=== PATIENT | male | born 1970 | race Caucasian/White ===

== ENCOUNTER 2018-02-14 08:28 | Outpatient (CLI) | payer BC, SELFPAY ==
[2018-02-14 11:09] LABS: Cholesterol 235 mg/dL (50-200); HDL Cholesterol 36 mg/dL (40-60); LDL CHOLESTEROL 169 mg/dL (<100); Triglyceride 196 mg/dL (30-150)
== END 2018-02-14 08:48 ==
LOC: LBO 08:29 → LOS 11:14
PROVIDERS: PCP Emergency Medicine; Visit Provider Emergency Medicine
DX: E78.5 Hyperlipidemia, unspecified (principal)
CPT/HCPCS: 36415; 80061; 83721

== ENCOUNTER 2018-03-13 09:29 | Outpatient (CLI) | payer BC, SELFPAY ==
--- NOTE | 2018-03-13 08:58 | DI.RAD_ITS ---
SYMPTOM/DIAGNOSIS: LT ACHILLES TEAR LEFT FOOT: Three views. No acute fracture or dislocation is seen. There is an enthesophyte at the insertion site of the Achilles onto the posterior calcaneus. There does appear to be some thickening of the Achilles tendon shadow which may represent tendinosis or tear. MRI of the ankle may be considered for further evaluation. No radiopaque foreign bodies are seen in the soft tissues. The joint spaces are well maintained.
== END 2018-03-13 09:49 ==
PROVIDERS: PCP Emergency Medicine; Visit Provider Physician Assistant
DX: M76.62 Achilles tendinitis, left leg (principal)
CPT/HCPCS: 73630

== ENCOUNTER 2018-03-30 00:48 | Outpatient (CLI) | payer OTHER, SELFPAY ==
--- NOTE | 2018-03-30 07:52 | DI.MRI_ITS ---
SYMPTOM/DIAGNOSIS: LT ACHILLES PAIN, M76.62, LT ACHILLES TENDINITIS LEFT ANKLE MRI: MRI examination of the ankle was performed according to the usual protocol. No significant bony signal abnormality is seen involving the bones of the ankle region. Bony alignment appears within normal limits. No gross ligamentous abnormality is seen. The requisition raises the possibility of Achilles tendinitis. The Achilles tendon is mildly thickened, measuring up to about 14 mm. in diameter but shows fairly normal intratendinous signal on PD T 2 fat sat and T 1 weighted imaging. Minimal fabrice insertional fluid is noted which is a very subtle finding. Minimal increased signal also noted just anterior to the Achilles tendon about 4 cm. above its insertion which may just be artifactual. No fluid collection is seen. No other significant fat edema identified. CONCLUSION: Findings suggesting minimal farbice insertional Achilles tendinitis. Achilles tendon is thickened but shows fairly normal signal consistent with reported previous surgical repair.
== END 2018-03-30 01:08 ==
PROVIDERS: PCP Emergency Medicine; Visit Provider Physician Assistant
DX: M76.62 Achilles tendinitis, left leg (principal); M25.572 Pain in left ankle and joints of left foot
CPT/HCPCS: 73721

== ENCOUNTER 2018-08-15 09:00 | Outpatient (CLI) | payer BC, SELFPAY ==
[2018-08-15 13:03] LABS: Cholesterol 244 mg/dL (50-200); HDL Cholesterol 36 mg/dL (40-60); LDL CHOLESTEROL 164 mg/dL (<100); Triglyceride 173 mg/dL (30-150)
== END 2018-08-15 09:20 ==
PROVIDERS: PCP Emergency Medicine; Visit Provider Emergency Medicine
DX: E78.00 Pure hypercholesterolemia, unspecified (principal)
CPT/HCPCS: 36415; 80061; 83721

== ENCOUNTER 2018-11-22 11:36 | Outpatient (CLI) | payer BC, SELFPAY ==
--- NOTE | 2018-11-22 11:21 | DI.RAD_ITS ---
SYMPTOMS/DIAGNOSIS: RT ACHILLES INJURY RIGHT HEEL: Lateral and Taylor projections are provided. No bony or joint abnormality is seen.
== END 2018-11-22 11:56 ==
PROVIDERS: PCP Emergency Medicine; Visit Provider Physician Assistant
DX: S86.011A Strain of right Achilles tendon, initial encounter (principal)
CPT/HCPCS: 73650

== ENCOUNTER 2018-11-22 11:58 | Outpatient (CLI) | payer BC, SELFPAY ==
--- NOTE | 2018-11-22 11:45 | DI.MRI_ITS ---
SYMPTOM/DIAGNOSIS: RT ACHILLES INJURY S86.011A MRI RIGHT ANKLE: Anterior talofibular and posterior talofibular and anterior tibiofibular and posterior tibiofibular ligaments are unremarkable. Calcaneal fibular ligament is unremarkable. The deltoid and spring ligaments are unremarkable. There is near complete disruption of the Achilles tendon 6 cm from its attachment on the calcaneus with only a few intact fibers remaining. There is also notable soft tissue edema about the Achilles tendon. The flexor tendons are unremarkable Extensor tendons are unremarkable. The peroneal and tibialis anterior and tibialis posterior tendons are intact. The muscles are unremarkable. There is no joint effusion. Sinus tarsi is intact. The tarsal tunnel is intact. The plantar facia is well maintained. Cartilaginous abnormality is seen. The bony structures are unremarkable. SUMMARY: Near complete disruption of the Achilles tendon with what appears to be a few remaining fibers intact.
--- NOTE | 2018-11-22 16:02 | DI.VRAD_ITS ---
EXAM: MR Right Lower Extremity Without Contrast, Ankle EXAM DATE/TIME: 11/22/2018 12:22 PM CLINICAL HISTORY: 48 years old, male; Injury or trauma; Injury history: Injured jumping on a trampoline. ; Initial encounter; Sprain or strain; Ankle; Patient HX: Traumatic rupture right achilles tendon. TECHNIQUE: Imaging protocol: MR of the Right ankle without contrast. COMPARISON: CR Calcaneus R 11/22/2018 8:37 AM FINDINGS: LIGAMENTS: Anterior talofibular: Unremarkable. No tear. Posterior talofibular: Unremarkable. No tear. Anterior tibiofibular: Unremarkable. No tear. Posterior tibiofibular: Unremarkable. No tear. Calcaneofibular: Unremarkable. No tear. Deltoid: Unremarkable. No tear. Spring: Unremarkable. No tear. TENDONS: Achilles: Near-complete disruption of the Achilles approximately 6 cm from its attachment on the calcaneus with only a few intact fibers appearing to still hold the tendon together. There is also noticeable soft tissue edema about the Achilles tendon. Flexors: Unremarkable. No tear. Extensors: Unremarkable. No tear. Peroneal: Unremarkable. No tear. Tibialis anterior: Unremarkable. No tear. Tibialis posterior: Unremarkable. No tear. Muscles: Unremarkable. Fluid: No joint effusion. Sinus tarsi: Unremarkable. Tarsal tunnel: Unremarkable. Plantar fascia: Unremarkable. Cartilage: Unremarkable. Bones/joints: Unremarkable. IMPRESSION: Near complete disruption of the Achilles tendon with what appears to be a few intact fibers still holding the tendon together. Dictated and Authenticated by: Rupert Melgoza MD. Ordering:SARA Pena MD
== END 2018-11-22 12:18 ==
PROVIDERS: PCP Emergency Medicine; Visit Provider Student in an Organized Health Care Education/Training Program
DX: S86.011A Strain of right Achilles tendon, initial encounter (principal); R60.0 Localized edema
CPT/HCPCS: 73721

== ENCOUNTER 2020-07-08 16:17 | Outpatient (REF) | payer BC, SELFPAY ==
[2020-07-08 14:39] LABS: Anion Gap 6.8 mmol/L (3-11); BUN 17 mg/dL (7-18); CO2 29.2 mmol/L (21.0-32.0); CREATININE 1.1 mg/dL (0.70-1.30); Calcium 9.7 mg/dL (8.5-10.1); Calculated LDL 187 mg/dL (<100); Chloride 103 mmol/L (98-107); Cholesterol 258 mg/dL (<200); Glucose 98 mg/dL (74-106); HDL Cholesterol 33 mg/dL (40-60); Potassium 4.4 mmol/L (3.5-5.1); Sodium 139 mmol/L (136-145); Triglyceride 190 mg/dL (<150)
== END 2020-07-08 16:18 | disposition home or self-care (01) ==
LOC: LBN 16:17
PROVIDERS: PCP Emergency Medicine; Visit Provider Emergency Medicine
DX: I10 Essential (primary) hypertension (principal); E78.00 Pure hypercholesterolemia, unspecified
CPT/HCPCS: 80048; 80061

== ENCOUNTER 2020-10-28 16:08 | Outpatient (REF) | payer BC, SELFPAY ==
[2020-10-28 18:17] LABS: Calculated LDL 189 mg/dL (<100); Cholesterol 252 mg/dL (<200); HDL Cholesterol 32 mg/dL (40-60); Triglyceride 155 mg/dL (<150)
== END 2020-10-28 16:09 | disposition home or self-care (01) ==
LOC: LBN 16:08
PROVIDERS: PCP Emergency Medicine; Visit Provider Emergency Medicine
DX: E78.00 Pure hypercholesterolemia, unspecified (principal)
CPT/HCPCS: 80061

== ENCOUNTER 2020-10-29 02:06 | Outpatient (CLI) | payer BC, SELFPAY ==
--- NOTE | 2020-10-29 08:00 | DI.RAD_ITS ---
Exam(s) XR HAND LT COMPLETE EXAM: XR HAND LT COMPLETE CLINICAL HISTORY: nodule distal second metacarpal,R22.30. TECHNIQUE: 2D digital imaging was performed. COMPARISON: No exams were available for comparison FINDINGS: There is no evidence of fracture nor dislocation no abnormal soft tissue calcifications. No osseous lesions nor erosions. With respect of the 2nd finger, there is no obvious focal soft tissue swelling nor calcification evid ent in the soft tissues of the 2nd-index finger (nor in the other fingers). Bone density is normal. No incidental osseous lesions. IMPRESSION: No significant radiographic findings. DATA REPOSITORY: RADIATION DOSE DELIVERED:
== END 2020-10-29 02:26 ==
PROVIDERS: PCP Emergency Medicine; Visit Provider Emergency Medicine
DX: R22.32 Localized swelling, mass and lump, left upper limb (principal)
CPT/HCPCS: 73130

== ENCOUNTER 2020-12-31 02:24 | Outpatient (CLI) | payer BC, SELFPAY ==
--- NOTE | 2020-12-31 06:30 | DI.MRI_ITS ---
Exam(s) MR UPPER EXTREMITY LT WO EXAM: MR UPPER EXTREMITY LT WO CLINICAL HISTORY: SUBCUTANEOUS NODULE OF HAND,JOINT PAIN,M25.542,R22.30 TECHNIQUE: Multiplanar multisequence MRI was performed. Marker is placed on the dorsal aspect of the 2nd metacarpophalangeal joint indicating region of clini keaton interest. COMPARISON: No exams were available for comparison FINDINGS: MARROW:There is no evidence of fracture, bone contusion, nor avascular necrosis. There are no erosio ns. Incidentally noted is the degenerative subarticular cyst in the base of proximal phalanx of the thumb, this measuring 3 x 2 millimeters. No obvious degenerative changes seen at the 1st carpometaca rpal joint. Tiny cyst also noted in the head of the proximal phalanx of the thumb. AREA OF CLINICAL CONCERN 2ND METACARPOPHALANGEAL JOINT (INDEX FINGER): At this level there is thickening and signal abnormality in the dorsal aspect of the radial collatera l ligament consistent with high-grade partial tearing at its proximal attachment site on the lateral aspect of the head of the 2nd metacarpal. There is no there is no joint effusion in the metacarpopha langeal joint. There is no bone contusion in the metacarpal head nor at the base of the proximal pha lanx. Partially visualized wrist articulations: Small ganglion cyst measuring 4 x 3 millimeters noted at th e articulation between the between the distal capitate and hamate. No abnormal signal in the adjacen t 3rd and 4th metacarpal bases nor in the other metacarpal bases. MUSCLES/TENDONS: There is no evidence of abnormal signal nor mass in the visualized muscles.There are no tendon tears or tenosynovitis EXTRAMUSCULAR SOFT TISSUES: No abnormal signal, mass, or fluid collection. OTHER: None. IMPRESSION: 1. There is high-grade partial tearing of the dorsal aspect of the radial collateral ligament of the 2nd metacarpophalangeal joint (index finger). This is at its proximal attachment site. There is no intraosseous signal abnormality in the 2nd metacarpal head and there is no joint effusion in the meta carpophalangeal joint. 2. There are no tendon tears or tenosynovitis. 3. Incidentally noted is a small para-articular ganglion as described above at the articulation betwe en the distal aspect of the capitate and hamate. DATA REPOSITORY:
--- NOTE | 2020-12-31 11:34 | DI.VRAD_ITS ---
PROCEDURE INFORMATION: Exam: MR Left Upper Extremity Other Than Joint Without Contrast; Hand Exam date and time: 12/31/2020 9:34 AM Age: 50 years old Clinical indication: Patient HX: Left hand pain just proximal to 2nd mcp joint. No h/o SX, no known injury. TECHNIQUE: Imaging protocol: MR of the Left upper extremity without contrast. Exam focused on the hand. COMPARISON: CR XR HAND LT COMPLETE 10/29/2020 11:04 AM FINDINGS: Bones and cartilage: Unremarkable. Joint spaces: Unremarkable. Collateral ligaments of digits: Marker was placed on the dorsal aspect of the 2nd MCP joint, indicating the region of the patient's pain. There is thickening of the radial collateral ligament of the 2nd MCP joint, especially along its proximal aspect where there is a tiny focus of fluid suggesting partial tearing on the dorsal aspect. This is best demonstrated on the coronal T2 series 71237, image 11. Flexor compartment tendons: Unremarkable. No evidence of tear. Extensor compartment tendons: Unremarkable. No evidence of tear. Muscles: Unremarkable. Soft tissues: Unremarkable. IMPRESSION: 1. Findings suspicious for partial tearing of the radial collateral ligament of the left 2nd MCP joint along its proximal attachment, dorsal aspect. Dictated and Authenticated by: Gemini Maguire MD. Ordering:ARSH Lin MD
== END 2020-12-31 02:44 ==
PROVIDERS: PCP Emergency Medicine; Visit Provider Student in an Organized Health Care Education/Training Program
DX: M25.542 Pain in joints of left hand (principal); R22.32 Localized swelling, mass and lump, left upper limb; S63.651A Sprain of metacarpophalangeal joint of left index finger, initial encounter; X58.XXXA Exposure to other specified factors, initial encounter
CPT/HCPCS: 73218

== ENCOUNTER 2021-06-01 04:14 | Outpatient (CLI) | payer BC, SELFPAY ==
[2021-06-01 15:47] LABS: Anion Gap 8.9 mmol/L (3-11); BUN 19 mg/dL (7-18); CO2 29.1 mmol/L (21.0-32.0); CREATININE 1.1 mg/dL (0.70-1.30); Calcium 9.3 mg/dL (8.5-10.1); Calculated LDL 90 mg/dL (<100); Chloride 103 mmol/L (98-107); Cholesterol 148 mg/dL (<200); Glucose 97 mg/dL (74-106); HDL Cholesterol 41 mg/dL (40-60); Potassium 3.9 mmol/L (3.5-5.1); Sodium 141 mmol/L (136-145); Triglyceride 88 mg/dL (<150)
== END 2021-06-01 04:15 | disposition home or self-care (01) ==
LOC: LBO 04:15
PROVIDERS: PCP Emergency Medicine; Visit Provider Emergency Medicine
DX: E78.00 Pure hypercholesterolemia, unspecified (principal); I10 Essential (primary) hypertension
CPT/HCPCS: 36415; 80048; 80061

== ENCOUNTER 2021-07-03 10:53 | Outpatient (REF) | payer BC, SELFPAY ==
[2021-07-04 13:16] LABS: COVID-19 RT-PCR UVMMC Result Negative (Negative)
== END 2021-07-03 10:54 | disposition home or self-care (01) ==
LOC: LBN 10:53
PROVIDERS: PCP Emergency Medicine; Visit Provider Physician Assistant Medical
DX: Z20.822 Contact with and (suspected) exposure to COVID-19 (principal); R53.83 Other fatigue
CPT/HCPCS: U0003

== ENCOUNTER 2021-07-06 14:37 | Outpatient (REF) | payer BC, SELFPAY ==
[2021-07-08 11:23] LABS: COVID-19 RT-PCR UVMMC Result Negative (Negative)
== END 2021-07-06 14:38 | disposition home or self-care (01) ==
LOC: LBN 14:37
PROVIDERS: PCP Emergency Medicine; Visit Provider Family Medicine
DX: R09.89 Other specified symptoms and signs involving the circulatory and respiratory systems (principal); Z20.822 Contact with and (suspected) exposure to COVID-19
CPT/HCPCS: U0003

== ENCOUNTER 2021-07-07 22:17 | Outpatient (CLI) | payer BC, SELFPAY ==
--- NOTE | 2021-07-07 13:12 | DI.RAD_ITS ---
Exam(s) XR CHEST 2V PA LATERAL EXAM: XR CHEST 2V PA LATERAL CLINICAL HISTORY: reccurent anterior chest pain,recent uri, lung-CTA, R07.9, J06.9 TECHNIQUE: 2D digital imaging was performed of the chest. Two images were obtained. PA and lateral views were obtained. COMPARISON: CR CHEST 2 VIEWS PA,LAT from 03/02/2017 FINDINGS: MEDIASTINUM: Normal. HEART: Normal. PULMONARY VASCULATURE: Normal. LUNGS: Clear. PLEURAL SPACE: No pleural effusion or pneumothorax. BONE:Within normal limits for the patient's age. OTHER FINDINGS:Normal. IMPRESSION: No acute pulmonary findings. DATA REPOSITORY: RADIATION DOSE DELIVERED:
== END 2021-07-07 22:37 ==
PROVIDERS: PCP Emergency Medicine; Visit Provider Family Medicine
DX: J06.9 Acute upper respiratory infection, unspecified (principal); R07.89 Other chest pain
CPT/HCPCS: 71046

== ENCOUNTER 2021-08-20 18:24 | Outpatient (REF) | payer BC, SELFPAY ==
--- NOTE | 2021-08-20 13:55 | SKI_PTH ---
PATIENT: Arnaldo Meeks LOC: [facility] U#:[id number] AGE/SX: 51/M ROOM: RE08/20/[address]: Karlos Mariano DO : 1970 BED: DIS: 08/20/2021 SPEC #: [id number] RECD: 08/21/21 12:26 STATUS: FELIPA JAIME #: [id number] PRANAY: 08/20/21 13:[address]: Karlos Mariano DEPT: Surgical Specimen RECD BY: Nadja Kirby Tissues: 1 - SKIN BIOPSY(SHAVE/PUNCH) Procedures: SKIN LEVEL 4 Comments: [id number]
== END 2021-08-20 18:25 | disposition home or self-care (01) ==
LOC: LBN 18:24
PROVIDERS: PCP Emergency Medicine; Visit Provider Emergency Medicine
DX: D22.5 Melanocytic nevi of trunk (principal)
CPT/HCPCS: 88305

== ENCOUNTER 2021-08-28 03:32 | Outpatient (CLI) | payer BC, SELFPAY ==
[2021-08-28 11:48] LABS: Iron 136 ug/dL (65-175); Total Iron Binding Capacity 308 ug/dL (250-450); Transferrin Sat 44 % (20-55)
[2021-08-28 11:55] LABS: TSH 1.64 uIU/mL (0.36-3.74)
== END 2021-08-28 03:33 | disposition home or self-care (01) ==
LOC: LBO 03:32
PROVIDERS: Emergency Medicine; PCP Family Medicine; Visit Provider Student in an Organized Health Care Education/Training Program
DX: E03.9 Hypothyroidism, unspecified (principal); G56.00 Carpal tunnel syndrome, unspecified upper limb
CPT/HCPCS: 36415; 83540; 83550; 84443

== ENCOUNTER 2022-09-07 06:11 | Day surgery (SDC) | payer BC, SELFPAY ==
[2022-09-07 06:15] VITALS: BP 150/98; PULSE 74; RESP 18; TEMP 36.6; O2SAT 98
[2022-09-07] MEDS: Lactated Ringers 1,000 ML 80 ML IV (06:41)
--- NOTE | 2022-09-07 06:53 | ANES.PREOP_ITS ---
General Info Date of Service Date Performed: 09/07/22 Height: 5 ft 10 in Weight: 90.718 kg Body Mass Index (BMI): 28.7 Surgical Procedure: Operation Date: 09/07/22 07:40 Proposed Procedure Side Surgeon p Wrist ECTR Left Riley Harris MD Meds Allergies and Home Medications Allergies Allergy/AdvReac Type Severity Reaction Status Date / Time amlodipine AdvReac Intermediate periphreal Verified 09/07/22 06:24 edema lisinopril AdvReac Intermediate cough Verified 09/07/22 06:24 rosuvastatin calcium AdvReac Intermediate myalgias Verified 09/07/22 06:24 [From Crestor] hydrochlorothiazide AdvReac Mild Leg cramps Verified 09/07/22 06:24 Sulfa (Sulfonamide AdvReac Unknown Nausea Verified 09/07/22 06:24 Antibiotics) Home Medication Medication Instructions Recorded sildenafil 100 mg tablet (Viagra) 25 - 50 mg PO DAILY PRN sexual 08/15/18 activity #4 tabs atorvastatin 40 mg tablet 40 mg PO DAILY #90 tabs 10/19/21 losartan 100 mg tablet 100 mg PO DAILY #90 tabs 10/19/21 felodipine 2.5 mg tablet,extended 2.5 mg PO DAILY #90 tabs 02/23/22 release 24 hr Current Visit Medications: Current Medications Generic Name Dose Route Start Last Admin Trade Name Freq PRN Reason Stop Dose Admin Ringer's Solution 1,000 mls @ 80 mls/hr 09/07/22 06:00 09/07/22 06:41 IV 10/06/22 23:59 80 mls/hr INFUSION ESDRAS Administration Cefazolin Sodium/Dextrose 2 gm in 50 mls @ 100 mls/hr 09/07/22 06:00 Ancef Duplex IVPB 09/07/22 16:00 PREOP ESDRSA IV Miscellaneous Supplies 1 each 09/07/22 06:00 Iv Access IV 10/06/22 23:59 DIRECTED ESDRAS Sodium Chloride 0 ml 09/07/22 06:00 Normal Saline Flush 10 Ml Syr IV 10/06/22 23:59 PRN PRN Sodium Chloride 0 ml 09/07/22 06:00 Normal Saline 10 Ml Vial IJ 10/06/22 23:59 DIRECTED PRN Sterile Water 0 ml 09/07/22 06:00 Water,Injection,Sterile 10 Ml Vial IJ 10/06/22 23:59 DIRECTED PRN PFSH Active Problems Active Problems: Problem Status Onset Code Left carpal tunnel syndrome G56.02 Hyperlipidemia E78.5 Subcutaneous nodule of hand R22.30 Essential hypertension 08/16/17 I10 Chest pain 05/27/17 R07.9 Surgical History Surgical History Repair of inguinal hernia Repair, Tendon or Muscle (~2012) ACHILLES TENDON Tobacco Smoking/Tobacco Use Status: Never Alcohol Alcohol Intake: never Substance Use Substance use: Never Substance use type: does not use Vital Signs and Lab Results Vital Signs Most Recent Vital Signs in EMR: Most Recent Vital Signs Temp Pulse Resp BP Pulse Ox 36.6 C 74 18 150/98 H 98 09/07/22 06:15 09/07/22 06:15 09/07/22 06:15 09/07/22 06:15 09/07/22 06:15 Lab Results Blood Type / Crossmatch: No Data to Display Complete Blood Count: No Data to Display Complete Metabolic Panel: No Data to Display Liver Function Panel: No Data to Display Coagulation Panel: No Data to Display Cardiac Panel: 2 No Data to Display Arterial Blood Gas: No Data to Display Venous Blood Gas: No Data to Display Pancreas Panel: No Data to Display Thyroid Panel: No Data to Display Infectious Disease: No Data to Display Blood Cultures: No Data to Display Toxicology Panel: No Data to Display Imaging and Studies Imaging and Studies Study information below may be from another EMR and interpreted by another provider. Please see original notes in EMR for more complete details. Stress Test Summary: Date of Exam: 03/07/17Sex: M : 1970Age: 46 Exam(s) [id number] NM:MPI Resting & Stress GRP *[facility]* *[facility]* [address] [place] [address] Myocardial Perfusion Imaging - SPECT Otoniel protocol Date of study: 03/07/2017 *PATIENT PRESENTATION* Height: 177.8cm (70in) Blood Pressure: Weight: 85.9kg (189lb) BSA: 2.07m^2 Referring physician: Arnaldo Ureña MD Ordering physician: Karlos Mariano Impressions: - Normal perfusion by Tc99m Sestamibi Imaging. - Abnormal contraction consistent with mild cardiomyopathy. Summary: 1. Myocardial perfusion imaging: No myocardial perfusion defects noted. 2. The calculated left ventricular ejection fraction after stress: 48%. 3. Stress: The target heart rate was achieved. Echocardiogram Summary: Date of Exam: 07/07/17ex: M : 1970Age: 47 Exam(s) [id number] US:Echocardiogram Heart *[facility]* *[facility]* [address] [place] [address] Date of study: 07/07/2017 Transthoracic Echocardiography M-mode, complete 2D, complete spectral Doppler, and color Doppler *STUDY CONCLUSIONS* Summary: 1. Left ventricle: The cavity size was normal. The estimated ejection fraction was 60%. 2. Mitral valve: There was mild regurgitation. 3. Right ventricle: The cavity size was normal. Wall thickness was normal. Systolic function was normal. 4. Atrial septum: No defect or patent foramen ovale was identified. 5. Pulmonary arteries: Pulmonary systolic pressure was in the range of 15mm Hg to 25mm Hg. 6. Inferior vena cava: The vessel was patent and normal in size. The respirophasic diameter changes were in the normal range (greater than or equal to 50%), consistent with normal central venous pressure. Anesthesia Assessment and Plan Anesthesia History Personal History: No History of Anesthesia Complications Family History: No Family History of Anesthesia Complications Exercise Tolerance Exercise Tolerance: Metabolic Equivalents>4 Pertinent Negatives Pertinent Negatives: No Symptoms of GERD, No Major Cardiovascular Symptoms or Complaints and No Major Pulmonary Symptoms or Complaints Cardiac & Pulmonary Exam Cardiac Exam: Normal S1/S2 Heart Sounds Pulmonary Exam: Clear Bilateral Breath Sounds Implantable Cardiac Device Does patient have a Pacemaker or an ICD?: No Airway Exam Known Difficult Airway: No Mallampati Class: 1 Mouth Opening: Normal (> 3cm) Thyromental Distance: Greater than 3 cm Neck Range of Motion: Full ROM Neck Circumference: Normal Teeth Condition: Normal Dentition ASA Classification ASA Score: ASA 2 Emergency Case?: No NPO Status NPO Status: NPO Clears >2 hours, Solids >8 hours Anesthesia Plan Resuscitation Status: Full Code Anesthesia Technique: General Anesthesia Airway Planned: Natural Airway Monitors Used: Standard Monitors
[2022-09-07 06:59] VITALS: BMI 28.7
--- NOTE | 2022-09-07 07:02 | HPE_ITS ---
Assessment and Plan Assessment and plan (1) Left carpal tunnel syndrome: Status: Acute Assessment and plan: Arnaldo is a 52-year-old [id number] male who has been diagnosed with carpal tunnel syndrome on the left side. He has exhausted nonoperative options and has elected to proceed with left carpal tunnel surgery. This decision was made back in a previous office visit 2021. He has had continued symptoms since that time and no other changes. Due to the persistence of symptoms and their daily limitations with normal function, I offered a carpal tunnel release. I discussed the technical details once again today. This would be an endoscopic technique but I would open if necessary. I discussed the risks of the procedure to include, but not limited to, bleeding, infection, palmar pain, stiffness, damage to nerves including scarring, damage to vessels, damage to tendons, weakness, recurrence, and incomplete release. Given these risks, Arnaldo desires to proceed. History of Present Illness History of Present Illness Chief Complaint: Left Carpal Tunnel Syndrome Narrative: Arnaldo is a 52-year-old male who has known numbness and tingling about the left hand. I saw him last year for the symptoms. His clinical exam and history fit with a diagnosis of carpal tunnel syndrome. He is here today for carpal tunnel release. He denies any changes to his medical health. No sick contacts. No chest pain or shortness of breath. He continues have numbness and tingling about the hand in the median nerve distribution. Review of Systems All systems reviewed & are unremarkable except as noted in HPI and below PFSH All Active Problems Left carpal tunnel syndrome (Acute) Hyperlipidemia (Acute) Subcutaneous nodule of hand (Acute) Essential hypertension (Acute 08/16/17) Chest pain (Acute 05/27/17) Neg MPI 2016 Surgical History Repair of inguinal hernia Repair, Tendon or Muscle (~2012) ACHILLES TENDON Family History Mother No problems noted. Father Essential hypertension Hyperlipidemia Brother Diabetes Essential hypertension Hyperlipidemia Grandfather Heart disease Grandfather No problems noted. Grandmother Diabetes Essential hypertension Grandmother No problems noted. Son No problems noted. Daughter No problems noted. Other Ruptured Achilles tendon - traumatic Social History Smoking/Tobacco Use Status: Never Smoking risk assessment performed?: Yes Alcohol Intake: never Drug use: Never Substance use type: does not use Household members: other Details: 4 current occupation: [employer] Pets and animals: Yes Pets and animals: cat(s) and dog(s) Duration: 15-30 minutes/day Frequency: 3-4 times per week Herminia/[employer]: [employer] Do you feel safe at home: Yes Do you feel safe in your relationship?: Yes Meds Allergies and Home Medications Allergies Allergy/AdvReac Type Severity Reaction Status Date / Time amlodipine AdvReac Intermediate periphreal Verified 09/07/22 06:24 edema lisinopril AdvReac Intermediate cough Verified 09/07/22 06:24 rosuvastatin calcium AdvReac Intermediate myalgias Verified 09/07/22 06:24 [From Crestor] hydrochlorothiazide AdvReac Mild Leg cramps Verified 09/07/22 06:24 Sulfa (Sulfonamide AdvReac Unknown Nausea Verified 09/07/22 06:24 Antibiotics) Home Medications Medication Instructions Recorded Confirmed Type sildenafil 100 mg tablet (Viagra) 25 - 50 mg PO DAILY PRN sexual 08/15/18 09/06/22 Rx activity #4 tabs atorvastatin 40 mg tablet 40 mg PO DAILY #90 tabs 10/19/21 09/07/22 Rx losartan 100 mg tablet 100 mg PO DAILY #90 tabs 10/19/21 09/07/22 Rx felodipine 2.5 mg tablet,extended 2.5 mg PO DAILY #90 tabs 02/23/22 09/07/22 Rx release 24 hr Exam Const General: cooperative, healthy appearing, comfortable and no acute distress Resp Auscultation: clear to auscultation bilaterally Cardio Rate: regular rate Rhythm: regular rhythm Results Last Vital Signs Temp 36.6 C 09/07/22 06:15 Pulse 74 09/07/22 06:15 Resp 18 09/07/22 06:15 BP 150/98 H 09/07/22 06:15 Pulse Ox 98 09/07/22 06:15
--- NOTE | 2022-09-07 07:12 | W.PM.DSUDISC ---
Date of service: 09/07/22 Time of Service: 07:12 Discharge Plan Disposition Patient Disposition: Home Condition: Good Discharge Details Reason For Visit: Left Carpal Tunnel Syndrome Attending Provider: Riley Harris Primary Care Provider: Dawson Salgado Home Meds and New Rx's Prescriptions: New hydrocodone-acetaminophen 5-325 mg tablet 1 tab PO Q6H PRN (Reason: pain) Qty: 4 0RF acetaminophen 500 mg tablet 500 mg PO Q6H PRN PRN (Reason: pain) Qty: 40 3RF ibuprofen 600 mg tablet 600 mg PO TID PRN (Reason: pain) Qty: 30 3RF Continued sildenafil [Viagra] 100 mg tablet 25 - 50 mg PO DAILY PRN (Reason: sexual activity) Qty: 4 12RF Rx Instructions: administer 30 minutes to 4 hours before activity felodipine 2.5 mg tablet extended release 24 hr 2.5 mg PO DAILY Qty: 90 3RF atorvastatin 40 mg tablet 40 mg PO DAILY Qty: 90 3RF losartan 100 mg tablet 100 mg PO DAILY Qty: 90 3RF Discharge Instructions Stand Alone Forms: Kimberly Nicole Tunnel Release Referrals: Riley Harris MD [ [facility] STAFF PHYSICIAN] - Activity:: Elevate Remove Dressings/Wound Care:: 48 hours Shower/Bathe:: 48 hours Diet:: As Tolerated Discharge Orders Discharge Orders: Discharge Order (Routine); Ordered 09/07/22 Ordered By: Riley Harris DS: Diagnosis Discharge Diagnosis (1) Left carpal tunnel syndrome: Status: Acute
[2022-09-07] MEDS: ceFAZolin 2 GM/50 ML BAG IVPB (07:22)
[2022-09-07] MEDS: Lidocaine 1% Pres-Free W/EPI 1/200,000 10 ML VIAL (07:33)
[2022-09-07 07:42] VITALS: BP 121/73; PULSE 86; RESP 16; TEMP 36.4; O2SAT 93
[2022-09-07 08:02] VITALS: BP 135/86; PULSE 86; RESP 18; TEMP 36.6; O2SAT 97
[2022-09-07 08:08] VITALS: BP 142/82; PULSE 80; RESP 18; TEMP 36.6; O2SAT 97
[2022-09-07] MEDS: Acetaminophen 325 MG TAB 650 MG PO (08:20)
--- NOTE | 2022-09-07 09:39 | W.ANESPOSTOP ---
Postoperative Evaluation Date, Time and Location Date Performed: 09/07/22 Time Performed: 08:40 Patient Location: Day Surgery Unit Vital Signs Most Recent Imported Vital Signs: Most Recent Vital Signs Temp Pulse Resp BP Pulse Ox 36.6 C 80 18 142/82 H 97 09/07/22 08:08 09/07/22 08:08 09/07/22 08:08 09/07/22 08:08 09/07/22 08:08 Pain Score Most Recent Pain Score: Most Recent Pain Score Pain Level 0 09/07/22 08:02 Assessment Mental Status: Awake (Alert & Oriented to Patient Baseline) Airway and Respiratory Function: Patent airway with normal (patient baseline) respiratory exam Cardiovascular Function: Hemodynamically Stable Hydration Status: Adequately Hydrated Nausea & Vomiting: No Nausea or Vomiting Pain: Pt. Denies Any Pain Peripheral Nerve Block: Regional nerve block not resolved at time of post operative discharge
--- NOTE | 2022-09-07 16:25 | W.PM.OP ---
Date of service: 09/07/22 Time of Service: 07:45 Operative Note Operative Note PRE-OP DIAGNOSIS: Left Carpal Tunnel Syndrome POST-OP DIAGNOSIS: same PROCEDURE: Left Endoscopic Carpal Tunnel Release SURGEON: Riley Harris ANESTHESIA TYPE: General:No Airway Refer to Anesthesia Record ESTIMATED BLOOD LOSS: 0 PATHOLOGY: none sent TOURNIQUET TIME: 6 COMPLICATIONS: None Patient was transported to: same day Patient's condition: stable Indications: I have seen Arnaldo in clinic for symptoms of carpal tunnel syndrome. The numbness, tingling, and pain limited function. Clinical exam findings with nerve conduction tests confirmed the diagnosis of carpal tunnel syndrome. Nonoperative measures such as bracing, time, activity modifications had been tried but disability and pain persisted. I discussed carpal tunnel release with the patient. I reviewed the risks of the procedure to include, but not limited to, bleeding, infection, pain, stiffness, incomplete release, damage to nerves or vessels, persistent numbness, recurrence. Despite these risks, the patient elected to proceed. Findings: There was tightened carpal tunnel. This was dilated and released successfully with the endoscopic with increased space within the tunnel. The antebrachial fascia was released proximally freeing the median nerve at the wrist. Procedure Description: Arnaldo was greeted in the preoperative holding area where the correct side was identified and marked. The consent was reviewed with the patient and signed. The history and physical was updated. All questions were answered. He was taken back to the operating room. The patient was placed into the supine position on the operating room table with the left arm on an arm board. A nonsterile tourniquet was placed high onto the arm. All bony prominences were well padded. Prophylactic antibiotics in the form of Cefazolin were administered. The left arm was then prepped with Chloraprep and draped in a standard fashion with stockinette and extremity drape. A timeout to confirm correct identity, side and site, procedure, allergies, anesthesia, and medical concerns was performed. The surgical site was marked in the volar wrist creases in line with the radial border of the fourth ray. This area was anesthetized with approximately 6cc of 1% Lidocaine. The limb was then exsanguinated with an Esmarch. The skin was incised with a 15 blade, approximately 1cm. The skin only was cut and the deeper tissue was dissected bluntly with a tenotomy scissor, avoiding passing nerve and venous structures. The fascia was penetrated and opened bluntly. A two-prong skin hook was placed under this proximal fascial edge. A series of hamate finders were used to identify and dilate the carpal tunnel. Synovial elevator was used to free synovial attachments to the underside of the transverse carpal ligament. My thumb was kept in the palm to zach the distal extent of the carpal tunnel and correctly position the hand. The Microaire endoscope was inserted without difficulty and without resistance. Excellent visualization showed horizontally running fibers of the transverse carpal ligament (TCL). The distal extent of the TCL was visualized and the end of the scope palpated with the thumb. The blade was elevated and withdrawn from distal to proximal. The TCL was split into two flaps. The endoscope was reinserted to confirm complete release and any remnant ligament was incised. The scope was withdrawn and the proximal aspect of the carpal tunnel was grossly inspected and appeared release with the median nerve visible. The antebrachial fascia at the level of the wrist was then freed from the overlying skin and then the underlying median nerve with blunt dissection. This was transected longitudinally for about 3cm proximal to the wrist incision. The wound was then irrigated with easy flow of irrigant distally and proximally. The incision was closed with a single 4-0 Nylon suture. The wound was dressed with Xeroform, Gauze, Kerlix and Michael. The tourniquet was deflated with the initial dressing and held with some pressure. Blood flow returned easily to all digits with capillary refill less than 2 seconds. The patient tolerated the procedure well and was returned to the Same Day Surgery area in a stable condition suffering no known complication.
== END 2022-09-07 08:34 | disposition home or self-care (01) ==
PROVIDERS: PCP Family Medicine; Visit Provider Student in an Organized Health Care Education/Training Program
PROC: 01N54ZZ Release Median Nerve, Percutaneous Endoscopic Approach (ICD-10-PCS; CPT 29848; principal; 2022-09-07 07:30)
DX: G56.02 Carpal tunnel syndrome, left upper limb (principal)
CPT/HCPCS: 29848; J0690; J1885; J2250; J2405

== ENCOUNTER 2022-12-13 02:46 | Outpatient (CLI) | payer BC, SELFPAY ==
[2022-12-13 16:37] LABS: Anion Gap 8.5 mmol/L (3-11); BUN 14 mg/dL (7-18); CO2 29.5 mmol/L (21.0-32.0); Calcium 9.3 mg/dL (8.5-10.1); Calculated LDL 114 mg/dL (<100); Chloride 102 mmol/L (98-107); Cholesterol 184 mg/dL (<200); Estimated GFR 91.69 (mL/min/1.73m2); Glucose 88 mg/dL (74-106); HDL Cholesterol 37 mg/dL (40-60); Potassium 3.7 mmol/L (3.5-5.1); Sodium 140 mmol/L (136-145); Triglyceride 167 mg/dL (<150)
[2022-12-14 17:44] LABS: PSA, Screening 0.5 ng/mL (<=3.5)
== END 2022-12-13 02:47 | disposition home or self-care (01) ==
LOC: LBO 02:46
PROVIDERS: PCP Family Medicine; Visit Provider Family Medicine
DX: E78.5 Hyperlipidemia, unspecified (principal); E87.1 Hypo-osmolality and hyponatremia; Z12.5 Encounter for screening for malignant neoplasm of prostate
CPT/HCPCS: 36415; 80048; 80061; 84153

== ENCOUNTER → 2023-06-29 09:38 | Outpatient (CLI) | payer BC, SELFPAY ==
--- NOTE | 2023-06-29 14:52 | DI.RAD_ITS ---
Exam(s) XR LUMBAR SPINE COMPLETE EXAM: XR LUMBAR SPINE COMPLETE CLINICAL HISTORY: ongoing low back pain,m54.9. TECHNIQUE: 2D digital imaging was performed. Five views. COMPARISON: CR XR CHEST 2V PA LATERAL from 07/07/2021 FINDINGS: BONES: No fracture or destructive lesion. Vertebral body heights are maintained. Minimal endplate os teophytes. No facet hypertrophy identified. DISKS: Mild narrowing of the L5-S1 disc space. The remaining intervertebral disc spaces are maintain ed. ALIGNMENT: Lumbar spinal alignment is within normal limits. SOFT TISSUE: Normal. IMPRESSION: Mild degenerative changes L5-S1. DATA REPOSITORY: RADIATION DOSE DELIVERED:
== END ==
PROVIDERS: PCP Family Medicine; Visit Provider Family Medicine
DX: M51.27 Other intervertebral disc displacement, lumbosacral region (principal)
CPT/HCPCS: 72110

== ENCOUNTER → 2023-07-14 00:48 | Outpatient (CLI) | payer BC, SELFPAY ==
--- NOTE | 2023-07-14 13:45 | DI.MRI_ITS ---
Exam(s) MR LUMBAR SPINE WO EXAM: MR LUMBAR SPINE WO CLINICAL HISTORY: ongoing back pain due to injury,failed pt,m54.9. TECHNIQUE: Multiplanar multisequence MRI of the Lumbar spine was performed. COMPARISON: CR XR CHEST 2V PA LATERAL from 07/07/2021 CR XR LUMBAR SPINE COMPLETE from 06/29/2023 FINDINGS: Bones: The last intervertebral disc space is designated the L5/S1 level for the numbering purpose of this ex amination. The vertebral body heights are well maintained. Alignment: Unremarkable. The marrow signal characteristics are unremarkable. Cord: The conus tip ends at the T12 level. It is of normal size and signal intensity. T12-L1: No focal disc herniation is present. No central spinal canal stenosis.No neural foraminal st enosis. L1-2: No focal disc herniation is present. No central spinal canal stenosis.No neural foraminal sten osis. L2-3: No focal disc herniation is present. No central spinal canal stenosis.No neural foraminal marcelle nosis. L3-4: No focal disc herniation is present. No central spinal canal stenosis.No neural foraminal marcelle nosis. L4-5: Minimal disc bulging. No focal disc herniation is present. No central spinal canal stenosis .No neural foraminal stenosis. L5-S1: No focal disc herniation is present. No central spinal canal stenosis.No neural foraminal st enosis. The visualized SI joints and sacrum are unremarkable. Soft tissues: The paraspinal soft tissues are unremarkable. IMPRESSION: No evidence of disc herniation. No evidence of significant spinal stenosis or neuroforaminal narrowi ng. DATA REPOSITORY:
== END ==
PROVIDERS: PCP Family Medicine; Visit Provider Family Medicine
DX: M54.9 Dorsalgia, unspecified (principal)
CPT/HCPCS: 72148

== ENCOUNTER → 2023-12-20 09:50 | Outpatient (CLI) | payer BC, SELFPAY ==
--- NOTE | 2023-12-20 09:15 | DI.RAD_ITS ---
Exam(s) XR HIP LT COMPLETE AP PELVIS EXAM: XR HIP LT COMPLETE AP PELVIS CLINICAL HISTORY: left hip pain, s/p fall M25.552. TECHNIQUE: 2D digital imaging was performed. COMPARISON: No exams were available for comparison FINDINGS: 3 views No evidence of pelvic nor hip fracture. Sacroiliac joints appear unremarkable. Additional images of the left hip reveal no fractures nor joint space narrowing. No osteophytes. Barney ne density normal. No osseous lesions. IMPRESSION: No significant osseous findings in the pelvis and hips. DATA REPOSITORY: RADIATION DOSE DELIVERED:
== END ==
PROVIDERS: PCP Family Medicine; Visit Provider Student in an Organized Health Care Education/Training Program
DX: M25.552 Pain in left hip (principal); G89.29 Other chronic pain
CPT/HCPCS: 73502

== ENCOUNTER 2023-12-20 12:19 | Outpatient (CLI) | payer BC, SELFPAY ==
[2023-12-20 11:01] LABS: Estimated GFR 91.12 (mL/min/1.73m2); Potassium 3.5 mmol/L (3.5-5.1)
--- OUTSIDE RECORDS SUMMARY | 2023-12-20 12:36 | XMS_ITS | Encounter Summary ---
Author Organization [facility] Address [address] [place] [address] Care Team Providers Care Power Bender Operator Name Role Phone Karols Mariano DO Primary Care Provider +1- [phone] Encounter Details Date Type Department Care Team (Late st Contact Info) Description 12/20/2023 Lab Requisition [facility] Pathology & Laboratory Medicine - [facility] [address] [place] [address] Outr Resulting Lab, Provider Social History Tobacco Use Types Packs/Day Years Used Date Smoking Tobacco: Never Assessed Sex and Gender Information Value Date Recorded Sex Assigned at Not on file Gender Identity Not on file Sexual Orientation Not on file documented as of this encounter Plan of Treatment Scheduled Orders Name Type Priority Associated Diagnoses Orde r Schedule HIV 1/2 ANTIGEN AND ANTIBODY , 4TH GENERATION Lab Routine Ordered: 024 documented as of this encounter Visit Diagnoses Not on filedocumented in this encounter Care Teams Power Bender Operator Relationship Specialty Start Date End Date Karlos Mariano DO [address] [place] [address] PCP - General 08/04/21 documented as of this encounter
--- OUTSIDE RECORDS SUMMARY | 2023-12-20 12:36 | XMS_ITS | Encounter Summary ---
Author Organization [facility] Address [address] [place] [address] Care Team Providers Care Collections Analyst Name Role Phone Karlos Mariano DO Primary Care Provider +1- [phone] Encounter Details Date Type Department Care Team (Late st Contact Info) Description 08/21/2021 Lab Requisition [facility] Pathology & Laboratory Medicine - [address] [address] Karlos Mariano DO [address] [place], [place] [id number] Encounter for other general examination Social History Tobacco Use Types Packs/Day Years Used Date Smoking Tobacco: Never Assessed Sex and Gender Information Value Date Recorded Sex Assigned at Not on file Gender Identity Not on file Sexual Orientation Not on file documented as of this encounter Plan of Treatment Not on file documented as of this encounter Procedures Procedure Name Priority Date/Time Associated Diagnosis Comments SURGICAL PATHOLOGY Today 08/20/2021 13 :55 EDT Encounter for other general examination documented in this encounter Results * SURGICAL PATHOLOGY (08/20/2021 13:55 EDT) Note to Patient The following pathology results have been interpreted by your pathologist and may be available to you before your health provider has had the opportunity to review them. Please allow time for your provider to receive these results and explore management options, if applicable. 08/24/2021 9:12 EDT [facility] Final Diagnosis A. SKIN OF BACK, MIDDLE, SHAVE BIOPSY: - Intradermal nevus. 08/24/2021 9:12 EDT [facility] Attestation By the signature below, the attending physician certifies that they have 1) personally conducted a gross and/or microscopic examination of the described specimen(s), and/or personally interpreted the results of laboratory testing of the described specimen(s), and 2) personally rendered or confirmed the above diagnosis. 08/24/2021 9:12 EDT [facility] at 0912 Clinical History Atypical nevus T6 midline 5 mm 08/24/2021 9:12 EDT [facility] Gross Description A. Received in formalin labelled with proper patient identification (initials D, M) and middle back is a pale brown circular skin, 0.2 cm in diameter and excised to a depth of 0.1 cm. The margin is inked. Entirely submitted intact in A1. SERAFIN TANG(ASCP) 08/21/2021 16:31 08/24/2021 9:12 EDT [facility] Performing Lab [facility] 08/24/2021 9:12 EDT [facility] Scanned Images 08/24/2021 9:12 EDT [facility] Tissue TISSUE SPECIMEN FROM SKIN / Unknown 08/20/2021 13:55 EDT 08/21/2021 16:24 EDT Karlos Mariano DO PATHOLOGY ORDERABL ES [facility] [address] [place] [address] documented in this encounter Visit Diagnoses Diagnosis Encounter for other general examination documented in this encounter Care Teams Collections Analyst Relationship Specialty Start Date End Date Karlos Mariano DO [address] [place] [address] PCP - General 08/04/21 documented as of this encounter
--- OUTSIDE RECORDS SUMMARY | 2023-12-20 12:36 | XMS_ITS | Encounter Summary ---
[place] [address] Care Team Providers Care Chili Pepper Grinder Name Role Phone Candelario Avalos MD Primary Care Provider Encounter Details Date Type Department Care Team (Late st Contact Info) Description 10/29/2020 Ancillary [place] [address] Riley Harris MD [address] [place] [address] Social History Tobacco Use Types Packs/Day Years Used Date Smoking Tobacco: Never Assessed Sex and Gender Information Value Date Recorded Sex Assigned at Not on file Gender Identity Not on file Sexual Orientation Not on file documented as of this encounter Plan of Treatment Not on file documented as of this encounter Procedures Procedure Name Priority Date/Time Associated Diagnosis Comments FILM LIBRARY STORAGE ONLY DX HIP Routine 10/29/2020 12:00 AM EDT documented in this encounter Results * Film Library- Storage Only DX Hip (10/29/2020 12:00 AM EDT) Narrative [facility] - 01/07/2021 3:57 PM EDT This exam is auto-finalizing. It's purpose is for storage only. Riley Harris MD [facility] FILM LIBRARY ORD ERABLES RAD [place], [place] documented in this encounter Visit Diagnoses Not on filedocumented in this encounter Care Teams Chili Pepper Grinder Relationship Specialty Start Date End Date Candelario Avalos MD [address] [place] [address] PCP - General 10/05/10 01/15/21 documented as of this encounter
--- OUTSIDE RECORDS SUMMARY | 2023-12-20 12:36 | XMS_ITS | Continuity of Care Document ---
Author Organization [facility] Address [address] [place] [address] Care Team Providers Care Miller Kiln Dried Salt Name Role Phone ZOHREH REYNOLDS MD Primary Care Physician [phone] Encounter [facility] NBR [id number] Date(s): 07/21/23 - 07/21/23 [facility] Ambulatory Clinics [address] [place], [place] [address] Patient Care team information Care Team Personnel Name: ZOHREH REYNOLDS MD Position: No Access Member Role: Primary Care Physician Address: Address: [address] [place] [phone] [facility]
--- OUTSIDE RECORDS SUMMARY | 2023-12-20 12:36 | XMS_ITS | Encounter Summary ---
Author Organization [facility] Address [address] [place] [address] Care Team Providers Care Corporate Coordinator Name Role Phone Karlos Mariano DO Primary Care Provider +1- [phone] Encounter Details Date Type Department Care Team (Late st Contact Info) Description 12/13/2022 Lab Requisition [facility] Pathology & Laboratory Medicine - [address] [address] Outr Resulting Lab, Provider Social History Tobacco [...] Procedure Name Priority Date/Time Associated Diagnosis Comments PSA TOTAL, DIAGNOSTIC Routine 12/13/2022 15:30 EDT documented in this encounter Results * PSA TOTAL, DIAGNOSTIC (12/13/2022 15:30 EDT) PSA 0.5 <=3.5 ng/mL 12/14/2022 17:40 EDT [facility] Blood VENOUS BLOOD / Unknown 12/13/2022 15:30 EDT 12/14/2022 15:29 EDT Narrative [facility] - 12/14/2022 17:40 EDT NOTE: Serum PSA concentration should not be interpreted as absolute evidence for the presence or absence of malignant disease. Assayed on Siemens ADVIA Centaur XPT using chemiluminescent technology.??Values obtained by using different assay methods cannot be used interchangeably. Provider Outr Resulting Lab CHEMISTRY & BLOOD GAS ORDERABLES [facility] [address] [place] [address] documented in this encounter Visit Diagnoses Not on filedocumented in this encounter Care Teams Corporate Coordinator Relationship Specialty Start Date End Date Karlos Mariano DO [address] [place] [address] PCP - General 08/04/21 documented as of this encounter
--- OUTSIDE RECORDS SUMMARY | 2023-12-20 12:36 | XMS_ITS | Encounter Summary ---
Author Organization [facility] [place] [address] Care Team Providers Care Rigging Up Worker Name Role Phone Robbie ADAME MD, Lloyd L Primary Care Provider Reason for Visit * Reason Onset Date Comments Arm Pain 09/22/2010 Encounter Details Date Type Department Care Team (Late st Contact Info) Description 09/22/2010 [place] [phone] Sree Mitchell MD [facility] [place] [address] Arm Pain Social History Tobacco Use Types Packs/Day Years Used Date Smoking Tobacco: Never Assessed Sex and Gender Information Value Date Recorded Sex Assigned at Not on file Gender Identity Not on file Sexual Orientation Not on file documented as of this encounter Miscellaneous Notes * Telephone Encounter - Ella Gregory RN - 10/02/2010 9:04 AM EDT Per protocol documented in this encounter Plan of Treatment Not on file documented as of this encounter Visit Diagnoses Diagnosis Elbow pain- Primary Pain in joint, upper arm documented in this encounter Care Teams Rigging Up Worker Relationship Specialty Start Date End Date Candelario Avalos III, MD [address] [place] [address] PCP - General 04/28/10 10/04/10 documented as of this encounter
--- OUTSIDE RECORDS SUMMARY | 2023-12-20 12:36 | XMS_ITS | Encounter Summary ---
Author Organization [facility] Address [address] [place] [address] Care Team Providers Care Drum Plater Name Role Phone GarcíaKarlos aguilar Primary Care Provider +1- [phone] Encounter Details Date Type Department Care Team (Late st Contact Info) Description 07/03/2021 Lab Requisition [facility] Pathology & Laboratory Medicine - [address] [address] Outr Resulting Lab, Provider Social History Tobacco [...] Procedure Name Priority Date/Time Associated Diagnosis Comments ZZCOVID-19 TEST [facility] PCR Today 07/03/2021 9:56 EST COVID-19 TESTING Routine 07/03/2021 9:56 EST documented in this encounter Results * COVID-19 TEST [facility] PCR (07/03/2021 9:56 EST) Swab 07/03/2021 9:56 EST 07/03/2021 21:05 EST Provider Outr Resulting Lab MICROBIOLOGY - GENERAL ORDERABLES [facility] [address] [place] [address] * COVID-19 TESTING (07/03/2021 9:56 EST) COVID-19 rt-PCR Result Negative Negative 07/04/2021 13:11 EST [facility] Comment: This test has not been FDA cleared or approved. This test has been authorized by FDA under an EUA for use by authorized laboratories. This test has been authorized only for detection of nucleic acid from 2019-nCoV, not for any other viruses or pathogens. This test is only authorized for the duration of the declaration that circumstances exist justifying the authorization of emergency use of in vitro diagnostic tests for detection and/or diagnosis of 2019-nCoV under section 564(b)(1) of Act, 21 U.S.C ?? 360bbb-3(b) (1), unless the authorization is terminated or revoked sooner. Negative results do not preclude 2019-nCoV infection and should not be used as the sole basis for treatment or other patient management decisions. Negative results must be combined with clinical observations, patient history, and epidemiological information. Testing was performed using the isaura SARS-CoV-2 assay ([employer] on the Isaura 6800 System Performing Lab [facility]aura [address] [facility] 07/04/2021 13:11 EST [facility] Swab 07/03/2021 9:56 EST 07/03/2021 21:05 EST Provider Outr Resulting Lab MICROBIOLOGY - GENERAL ORDERABLES [facility] [address] [place] [address] documented in this encounter Visit Diagnoses Not on filedocumented in this encounter Care Teams Drum Plater Relationship Specialty Start Date End Date Karlos Mariano DO [address] [place] [address] [place] [address] PCP - General 08/04/21 documented as of this encounter
--- OUTSIDE RECORDS SUMMARY | 2023-12-20 12:36 | XMS_ITS | Encounter Summary ---
[facility] [place] [address] Care Team Providers Care Accounting Professional Name Role Phone García, Karlos WU Primary Care Provider Reason for Visit * Reason Comments Establish Care partial tear of 2nd mcp * Consultation (Routine) - Closed Specialty Diagnoses / Procedures Referred By Eusebio lópez Referred To Contact Orthopaedics Diagnoses RIF MCP RADIAL COLLATORAL LIGAMENT TEAR Riley Harris MD [address] [place] [address] [facility] [place] [place] [facility] [address] [place] [id number] Referral ID Status Reason Start Date Expiration Date Visits Re quested Visits Authorized [id number] Closed 01/07/2021 01/07/2022 6 6 Encounter Details Date Type Department Care Team (Late st Contact Info) Description 01/27/2021 8:30 AM EDT [place] [address] Feliciano Hurley MD [facility] [place] [address] Pain in finger of left hand Social History Tobacco Use Types Packs/Day Years Used Date Smoking Tobacco: Never Assessed Sex and Gender Information Value Date Recorded Sex Assigned at Not on file Gender Identity Not on file Sexual Orientation Not on file documented as of this encounter Last Filed Vital Signs Vital Sign Reading Time Taken Comments Blood Pressure 138/91 01/27/2021 8:24 AM EDT Pulse 70 01/27/2021 8:24 AM EDT Temperature - - Respiratory Rate - - Oxygen Saturation - - Inhaled Oxygen Concentration - - Weight 88.6 kg (195 lb 4.8 oz) 01/27/2021 8:24 A M EDT Height 180.3 cm (5' 11) 01/27/2021 8:24 AM EDT Body Mass Index 27.24 01/27/2021 8:24 AM EDT documented in this encounter Progress Notes * Noam Hutton MD - 01/27/2021 8:30 AM EDT ORTHOPAEDIC SURGERY CLINIC NEW PATIENT EVALUATION DATE OF VISIT: 01/27/21 Chief complaint: Chief Complaint Patient presents with ??? Establish Care partial tear of 2nd mcp Date of injury: ~6 months prior History of present illness: Arnaldo Meeks is a 50 y.o. year-old LHD male who is seen today for evaluation of left index MCP pain. 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 Symptoms occur daily and have progressively worsened since initial onset months ago. Symptoms are worse with activity, specifically when gripping or performing fine motor movements. He reports the symptoms as being most severe after a long day of work. He has occasionally had to reduce his activities at work due to pain. He has not immobilized the index finger or index MCP joint. Past Medical history: Patient Active Problem List Diagnosis Date Noted ??? Left arm pain 10/05/2010 History of blood clots or bleeding disorders: Denies Medications: ??? simvastatin (ZOCOR) 40 mg tablet ??? atorvastatin (Lipitor) 40 mg Tablet Allergies: Allergies Allergen Reactions ??? Sulfa (Sulfonamide Antibiotics) Nausea And Vomiting Social history: Social History Tobacco Use ??? Smoking status: Not on file Substance Use Topics ??? 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 No flowsheet data found. Vital signs: Temp: -- Heart Rate: [70] BP: (138)/(91) Body mass index is 27.24 kg/m??. Physical Exam: No acute distress Affect within normal limits for age Alert and oriented Speech clear and intact, appropriate for age Head atraumatic Respirations unlabored Brisk capillary refill peripheral bilateral upper extremities, warm and well perfused L index finger: Moderate swelling of MCP No TTP No extensor subluxation UCL, RCL stable and pain free Painless extension of digit No pain when resisting 1st dorsal interosseous muscle Imaging: Personal review of the patient's imaging reveals: Subtle edema focally at radial collateral ligament of MCP, indicating . Assessment/Plan: 50 y.o. year-old LHD male presenting with 6 months of progressively worsening L index and MCP pain. MRI with possible L index MCP radial collateral ligament tear, but patient withoutlaxity or pain on exam. Patient likely experienced sprain of this ligament several months ago, which has failed to fully improve due to lack of immobilization and continued activity. Patient's digit and hand demonstrating excellent strength on exam, indicating that strengthening with hand therapy would likely be futile. As patient has not trialed immobilization, recommended obtaining fabricated removable splint vs cast. Patient elected to pursue casting as he is interested in maximizing the potential for complete resolution of symptoms. Plan for casting with follow-up in 3 weeks for cast removal re-evaluation. Patient to call sooner with any questions or concerns. This plan was discussed with the patient and they are in agreement. All of the patient's questions were answered, and they were satisfied with the discussion. Follow up: 3 weeks for cast removal and re-evaluation Noam Hutton MD Orthopedic Resident I have seen and examined the above named patient, reviewed and edited the contents of the note supplied by the resident or physician puzzle assembler with whom I saw the patient, and reviewed our findings and recommendations with the patient in person. Feliciano Hurley MD, MPH Department of Orthopaedic Surgery Pediatric Orthopaedic & Hand Surgeon documented in this encounter Plan of Treatment Not on file documented as of this encounter Visit Diagnoses Diagnosis Pain in finger of left hand Pain in limb documented in this encounter Care Teams Accounting Professional Relationship Specialty Start Date End Date Karlos Mariano DO [address] [place] [address] PCP - General Family Medicine 01/16/21 documented as of this encounter
--- OUTSIDE RECORDS SUMMARY | 2023-12-20 12:36 | XMS_ITS | Encounter Summary ---
Author Organization [facility] [place] [address] Care Team Providers Care Lead Systems Analyst Name Role Phone Candelario Avalos MD Primary Care Provider [phone] Encounter Details Date Type Department Care Team (Latest Contact Info) Description 10/05/2010 12:44 PM EDT - 10/05/2010 11:59 PM EDT Hospital [place] [phone] CLINIC, Sree Lyle MD [facility] [address] Pain, elbow Discharge Disposition: Home Social History Tobacco Use Types Packs/Day Years Used Date Smoking Tobacco: Never Assessed Sex and Gender Information Value Date Recorded Sex Assigned at Not on file Gender Identity Not on file Sexual Orientation Not on file documented as of this encounter Medications at Time of Discharge Medication Sig Dispensed Refills Start Date End Date simvastatin (ZOCOR) 40 mg tablet 06/20/19 07 documented as of this encounter Plan of Treatment Not on file documented as of this encounter Procedures Procedure Name Priority Date/Time Associated Diagnosis Comments MRI ELBOW WO CONTRAST Routine 10/05/2010 1:41 PM EDT Pain, elbow documented in this encounter Results * MRI elbow WO contrast (10/05/2010 1:41 PM EDT) Anatomical Region Laterality Modality Elbow Magnetic Resonan ce 10/05/2010 1:41 PM EDT Impressions 10/09/2010 11:09 AM EDT IMPRESSION: 1. ??Mild lateral epicondylitis. Film and interpretation reviewed by the attending Narrative 10/09/2010 11:09 AM EDT MR OF THE LEFT ELBOW, 10/05/10: CLINICAL INDICATION: ??Persistent elbow pain. Evaluate for mediolateral tendinopathy. COMPARISON: ??Radiographs of the bilateral elbows obtained on the same date of service. TECHNIQUE: ??Multiplanar, multisequence magnetic resonance images of the left elbow were obtained without the use of intravenous or intraarticular gadolinium. FINDINGS: ??There is mild heterogeneous increased T2 signal intensity within the common extensor tendons along the lateral epicondyle. There is no evidence for tear of the common extensor tendons or radial collateral ligament. The lateral ulnar collateral ligament and the ulnar collateral ligaments are intact and unremarkable. The common flexor tendons are of normal signal intensity. Triceps tendon is normal. The annular ligament appears intact. The visualized portions of biceps and brachialis tendons are normal caliber and signal intensity as well. ?? Ulnar nerve is somewhat hyperintense, however, is of normal caliber, and this a normal variant. No abnormal muscle belly edema. Bone marrow signal intensity is unremarkable. There is no evidence for gross cartilaginous defects. Procedure Note Brain Forde MD - 10/09/2010 MR OF THE LEFT ELBOW, 10/05/10: CLINICAL INDICATION: Persistent elbow pain. Evaluate for mediolateral tendinopathy. COMPARISON: Radiographs of the bilateral elbows obtained on the same dateof service. TECHNIQUE: Multiplanar, multisequence magnetic resonance images of theleft elbow were obtained without the use of intravenous or intraarticular gadolinium. FINDINGS: There is mild heterogeneous increased T2 signal intensitywithin the common extensor tendons along the lateral epicondyle. There is no evidencefor tear of the common extensor tendons or radial collateral ligament. Thelateral ulnar collateral ligament and the ulnar collateral ligaments are intactand unremarkable. The common flexor tendons are of normal signal intensity.Triceps tendon is normal. The annular ligament appears intact. The visualizedportions of biceps and brachialis tendons are normal caliber and signal intensityas well. Ulnar nerve is somewhat hyperintense, however, is of normal caliber, andthis a normal variant. No abnormal muscle belly edema. Bone marrow signalintensity is unremarkable. There is no evidence for gross cartilaginous defects. IMPRESSION IMPRESSION: 1. Mild lateral epicondylitis. Film and interpretation reviewed by the attending Sree Mitchell MD IMG MRI ORDERABLES documented in this encounter Visit Diagnoses Diagnosis Pain, elbow Pain in joint, upper arm documented in this encounter Care Teams Lead Systems Analyst Relationship Specialty Start Date End Date Candelario Avalos MD [address] [place] [address] PCP - General 10/05/10 01/15/21 documented as of this encounter
--- OUTSIDE RECORDS SUMMARY | 2023-12-20 12:36 | XMS_ITS | Encounter Summary ---
Author Organization [facility] [place] [address] Care Team Providers Care Metal Finisher Name Role Phone García, Karlos WU Primary Care Provider Reason for Visit * Reason Onset Date Comments Disability Paperwork 01/28/2021 Encounter Details Date Type Department Care Team (Late st Contact Info) Description 01/28/2021 Telephone [place] [id number] Feliciano Hurley MD [facility] [address] [place] [address] Disability Paperwork Social History Tobacco Use Types Packs/Day Years Used Date Smoking Tobacco: Never Assessed Sex and Gender Information Value Date Recorded Sex Assigned at Not on file Gender Identity Not on file Sexual Orientation Not on file documented as of this encounter Miscellaneous Notes * Telephone Encounter - Domi Kc - 02/12/2021 7:05 AM EDT To provider for review/signature: signed Faxed/Mailed/MY PORTAL/Pick-up Date: faxed and [phone] * Telephone Encounter - Cody Castrejon - 02/06/2021 9:29 AM EDTSummary: Patient calling to check, he is concerned because 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 I let him know it takes maximum of 14 days and it has been received on 01/28/21. He has financial concerns and worried about going off payroll. * Telephone Encounter - Prudence Mitchell - 01/28/2021 10:21 AM EDT Date Received: 01/28/ Insurance/Disability Company Name: [employer] documented in this encounter Plan of Treatment Not on file documented as of this encounter Visit Diagnoses Not on filedocumented in this encounter Care Teams Metal Finisher Relationship Specialty Start Date End Date Karlos Mariano DO [address] [place] [address] PCP - General Family Medicine 01/16/21 documented as of this encounter
--- OUTSIDE RECORDS SUMMARY | 2023-12-20 12:36 | XMS_ITS | Encounter Summary ---
[place] [address] Care Team Providers Care Paperhanger Pipe Name Role Phone Candelario Avalos MD Primary Care Provider Encounter Details Date Type Department Care Team (Late st Contact Info) Description 12/31/2020 Ancillary Procedure [place] [address] Riley Harris MD [address] [place] [address] Social History Tobacco Use Types [...] Associated Diagnosis Comments FILM LIBRARY STORAGE ONLY MR UPPER EXTREMITY Routine 12/31/2020 12:00 AM EDT documented in this encounter Results * Film Library- Storage Only MR Upper Extremity (12/31/2020 12:00 AM EDT) Narrative [facility] [place] - 01/07/2021 3:56 PM EDT This exam is auto-finalizing. It's purpose is for storage only. Riley Harris MD IM FILM LIBRARY ORD ERABLES [facility] [place], [place] documented in this encounter Visit Diagnoses Not on filedocumented in this encounter Care Teams Paperhanger Pipe Relationship Specialty Start Date End Date Candelario Avalos MD [address] [place] [address] PCP - General 10/05/10 01/15/21 documented as of this encounter
--- OUTSIDE RECORDS SUMMARY | 2023-12-20 12:36 | XMS_ITS | Encounter Summary ---
Author Organization [facility] [place] [address] Care Team Providers Care Insurance Sales Producer Name Role Phone Candelario Avalos MD Primary Care Provider Reason for Visit * Reason Comments Left Elbow Pain L lat epicondylitis SX X 1 year Encounter Details Date Type Department Care Team (Late st Contact Info) Description 10/05/2010 10:30 AM EDT [place] [id number] CLINIC, Moon Weston PA [facility] [place] [address] Pain, elbow (Primary Dx) Discharge Disposition: Home Social History Tobacco Use Types Packs/Day Years Used Date Smoking Tobacco: Never Assessed Sex and Gender Information Value Date Recorded Sex Assigned at Not on file Gender Identity Not on file Sexual Orientation Not on file documented as of this encounter Progress Notes * Moon Jesus PA - 10/05/2010 12:53 PM EDT Subjective: Patient ID: Arnaldo Meeks is a 40 y.o. male. Date of injury: February 14, 2010 Staff: Sree Mitchell M.D. DOCThis is a 40-year-old, [id number] male, who presents for evaluation of the left upper extremity, work related issue. Patient states that he has had symptoms for quite some time involving his left elbow. Does recall a remote episode at work where he sustained a sense of something tearingIn his elbow. There was no bruising associated with this. Subsequently has had problems of pain related to repetitive motion activities. Patient states that initially he could not think of any specific trauma, but then did recall the episode as described above. Is not sure whether that had direct relationship to his chronic symptoms. He has been treated with therapy and has had some improvement, but continues to have pain. Apparently, initially had pain both medial and lateral elbow and into the wrist associated with paresthesias. Paresthesias have largely resolved at this point as has his wrist pain. It is felt by the therapist that he has plateaued at that injection should be considered. He did have a course of iontophoresis.The patient states he feels an occasional sense of crepitus and initially he states he had some locking. States that if he increases his activity he gets increased symptoms. Recently he has described pain going up my arm above the elbow area. 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 Currently on light duty ROSNegative except for that noted above Objective: Physical ExamHealthy-appearing male. Height 5 feet 10, weight 175 pounds. Ortho ExamOn directed examination of the left upper extremity there is no obvious swelling or deformity. Patient has full range of motion of his elbow and wrist. There is pain associated with full extension of his left elbow.The patient points to the area of the lateral epicondyle as well as posterior medial elbow as the site of discomfort. With compression flexion he does have some paresthesias in the ulnar nerve distribution. He has some mild tenderness and reproduction of paresthesias to palpation of the ulnar nerve at cubital tunnel. He does not have evidence of subluxing ulnar nerve. He has no tenderness at the medial epicondyle this time.There is tenderness of the lateral epicondyle. Pain with resisted wrist extension.No swelling or deformity about the wrist. No atrophy or weakness.Skin and capillary refill are intact. Neurologic ExamOriented and alert Radiographs: X-rays of his elbow does not show any evidence of effusion or other significant abnormality Assessment and Plan: Assessment: Previous injury left upper extremity with findings consistent with lateral epicondylitis. Plan: Discussed with Dr. Mitchell. Questions are answered. Discussed the role of injection. Risks andbenefits of this are reviewed. The patient has some apprehension about proceeding with the injection and would like to consider thinking about that option. We did discuss imaging the form of MRI to evaluate the integrity of the extensor mechanism. I think it is likely to show findings consistent with the diagnosis. We will go ahead and obtain that study at this point and he will be seen back withDr. Mitchell to review the results and consider treatment options. He will continue with his limited duty work as prescribed by his treating provider. Continue with his home exercise program. Did discuss natural history of lateral epicondylitis. If he has recurrence or persistence of ulnar paresthesias with increased activity, could consider EMG evaluation, although he has no evidence of motor weakness or atrophy. No problem-specific visit notes found for this encounter. documented in this encounter Miscellaneous Notes * Miscellaneous - Robb, Plate Conditioner - 11/03/2010 9:58 AM EDT * Miscellaneous - Robb, Plate Conditioner - 10/08/2010 1:35 PM EDT documented in this encounter Plan of Treatment Not on file documented as of this encounter Results * MRI elbow WO [...] in this encounter Visit Diagnoses Diagnosis Pain, elbow- Primary Pain in joint, upper arm Pain, elbow Pain in joint, upper arm documented in this encounter Care Teams Insurance Sales Producer Relationship Specialty Start Date End Date Candelario Avalos MD [address] [place] [address] PCP - General 10/05/10 01/15/21 documented as of this encounter
--- OUTSIDE RECORDS SUMMARY | 2023-12-20 12:36 | XMS_ITS | Encounter Summary ---
Author Organization [facility] Address [address] [place] [address] Care Team Providers Care Casework Supervisor Name Role Phone GarcíaKarlos aguilar Primary Care Provider [phone] Encounter Details Date Type Department Care Team (Late st Contact Info) Description 07/06/2021 Lab Requisition [facility] Pathology & Laboratory Medicine - [address] [address] Outr Resulting Lab, Provider Social History Tobacco [...] Priority Date/Time Associated Diagnosis Comments ZZCOVID-19 TEST [facility] PCR Today 07/06/2021 15:15 EST COVID-19 TESTING Routine 07/06/2021 15:1 5 EST documented in this encounter Results * COVID-19 TEST [facility] PCR (07/06/2021 15:15 EST) Swab 07/06/2021 15:1 5 EST 07/07/2021 16:40 EST Provider Outr Resulting Lab MICROBIOLOGY - GENERAL ORDERABLES [facility] [address] [place] [address] * COVID-19 TESTING (07/06/2021 15:15 EST) COVID-19 rt-PCR Result Negative Negative 07/08/2021 11:17 EST [facility] Comment: This test has not [...] was performed using the isaura SARS-CoV-2 assay ([employer] on the Isaura 6800 System Performing Lab Isaura 6800 [facility] 07/08/2021 11:17 EST [facility] Swab 07/06/2021 15:1 5 EST 07/07/2021 16:40 EST Provider Outr Resulting Lab MICROBIOLOGY - GENERAL ORDERABLES [facility] [address] [place] [address] documented in this encounter Visit Diagnoses Not on filedocumented in this encounter Care Teams Casework Supervisor Relationship Specialty Start Date End Date Karlos Mariano DO [address] [place], [place] [address] [place] [address] PCP - General 08/04/21 documented as of this encounter
--- OUTSIDE RECORDS SUMMARY | 2023-12-20 12:36 | XMS_ITS | Clinical Summary ---
Author Organization [facility] Address [address] [place] [address] Care Team Providers Care Long Term Care Phlebotomist Name Role Phone GarcíaKarlos aguilar Primary Care Provider [phone] Encounters Date Type Department Care Team Description 12/20/2023 Lab Requisition [facility] Pathology & Laboratory [address] [address] Outr Resulting Lab, Provider 12/20/2023 Lab Requisition [facility] Pathology & Laboratory [address] [address] Outr Resulting Lab, Provider from Last 3 Months Social History Tobacco Use Types Packs/Day Years Used Date Smoking Tobacco: Never Assessed Sex and Gender Information Value Date Recorded Sex Assigned at Not on file Gender Identity Not on file Sexual Orientation Not on file Plan of Treatment Health Maintenance Due Date Last Done Comments Hepatitis C Screen 1970 Hepatitis B Vaccine (1 of 3 - 19+ 3-dose series) 04/30 COVID-19 Vaccine (2022- season) 2023 Care Teams Long Term Care Phlebotomist Relationship Specialty Start Date End Date Karlos Mariano DO [address] [place] [address] [place] [address] PCP - General 08/04/21
--- OUTSIDE RECORDS SUMMARY | 2023-12-20 12:36 | XMS_ITS | Clinical Summary ---
Author Organization [facility] [place] [address] Care Team Providers Care Audit Director Name Role Phone Karlos Mariano DO Primary Care Provider [phone] Allergies Active Allergy Reactions Criticality Noted Date Comments Amlodipine Medium 12/04/2020 Other reaction(s): periphreal edema Hydrochlorothiazide Low 12/04/2020 Other reaction(s): Leg cramps Lisinopril Medium 12/04/2020 Other reaction(s): cough Rosuvastatin Calcium Medium 12/04/2020 Other reaction(s): myalgias Sulfa (Sulfonamide Antibiotics) Nausea And Vomiting Medium Medications Medication Sig Dispensed Refills Start Date End Date Status simvastatin (ZOCOR) 40 mg tablet 06/20/2006 Active atorvastatin (Lipitor) 40 mg Tablet 1 tablet. 01/06/2021 Active losartan (COZAAR) 100 mg Tablet TAKE ONE TABLET BY MOUTH EVERY DAY 11/20/2020 Active pravastatin (PRAVACHOL) 40 mg Tablet TAKE ONE TABLET BY MOUTH EVERY DAY 10/15/2020 Active sildenafiL (VIAGRA) 100 mg Tablet Take by mouth. 08/15/2018 Active Active Problems Problem Noted Date Diagnosed Date Left arm pain 10/05/2010 Social History Tobacco Use Types Packs/Day Years Used Date Smoking Tobacco: Never Smokeless Tobacco: Never Sex and Gender Information Value Date Recorded Sex Assigned at Not on file Gender Identity Not on file Sexual Orientation Not on file Last Filed Vital Signs Vital Sign Reading Time Taken Comments Blood Pressure 144/96 02/18/2021 9:18 AM EDT Pulse 68 02/18/2021 9:18 AM EDT Temperature - - Respiratory Rate - - Oxygen Saturation - - Inhaled Oxygen Concentration - - Weight 88.6 kg (195 lb 5.2 oz) 02/18/2021 9:18 A M EDT Height 180.3 cm (5' 10.98) 02/18/2021 9:18 AM E DT Body Mass Index 27.25 02/18/2021 9:18 AM EDT Plan of Treatment Health Maintenance Due Date Last Done Comments CT Colonography 1972 Colonoscopy 1972 Colorectal Cancer Screening 1972 FIT DNA 1972 FIT 1972 Sigmoidoscopy (10 year) with FIT yearly 1972 Sigmoidoscopy 1972 HIV screen 1990 Hepatitis C Screening 1990 Hepatitis B vaccine (0-59 yrs) (1) 1991 Tdap adult 1991 Tetanus vaccine 1991 Diabetes Screening (HgbA1C or Glucose) 2012 Zoster vaccine (1 of 2) 2022 Covid-19 Vaccine (1 - season) 2023 Influenza (Flu) vaccine (1 o f 1 - Influenza standard series) 02/05/2024 Care Teams Audit Director Relationship Specialty Start Date End Date Karlos Mariano DO [address] [place] [address] PCP - General Family Medicine 01/16/21
--- OUTSIDE RECORDS SUMMARY | 2023-12-20 12:36 | XMS_ITS | Encounter Summary ---
[place] [address] Care Team Providers Care Transformer Mechanic Name Role Phone Karlos Mariano DO Primary Care Provider [phone] Encounter Details Date Type Department Care Team (Late st Contact Info) Description 02/18/2021 9:00 AM EDT Office [place] [address] Injury of left index finger, subsequent encounter Social History Tobacco Use Types Packs/Day Years Used Date Smoking Tobacco: Never Smokeless Tobacco: Never Sex and Gender Information Value Date Recorded Sex Assigned at Not on file Gender Identity Not on file Sexual Orientation Not on file documented as of this encounter Progress Notes * Reina Kulkarni - 02/18/2021 9:00 AM EDT Arnaldo Hartmannars presents to the clinic for a cast off per Dr. Hurley. The cast was intact upon arrival. The patient was explained how the cast saw works and the cast was removed. The patient tolerated this procedure well. The patient's skin was intact. documented in this encounter Plan of Treatment Not on file documented as of this encounter Visit Diagnoses Diagnosis Injury of left index finger, subsequent encounter documented in this encounter Care Teams Transformer Mechanic Relationship Specialty Start Date End Date Karlos Mariano DO [address] [place] [address] PCP - General Family Medicine 01/16/21 documented as of this encounter
--- OUTSIDE RECORDS SUMMARY | 2023-12-20 12:36 | XMS_ITS | Encounter Summary ---
Author Organization [facility] [place] [address] Care Team Providers Care Tool Grinding Machine Operator Name Role Phone García, Karlos WU Primary Care Provider Reason for Visit * Reason Comments Follow-up LEFT HAND PAIN, PART IAL TEAR OF 2nd MCP JOINT Encounter Details Date Type Department Care Team (Late st Contact Info) Description 02/18/2021 9:30 AM EDT Office [place] [address] Feliciano Hurley MD [facility] DR [place] [address] Pain in finger of left hand Social [...] Mass Index 27.25 02/18/2021 9:18 AM EDT documented in this encounter Progress Notes * Noam Hutton MD - 02/18/2021 9:30 AM EDT Orthopaedic Clinic Progress Note DATE OF VISIT: 02/18/21 CHIEF COMPLAINT: Chief Complaint Patient presents with ??? Follow-up LEFT HAND PAIN, PARTIAL TEAR OF 2nd MCP JOINT HPI: Arnaldo Meeks is a 50 y.o. male patient who presents to the orthopaedic clinic for a follow-up appointment. Patient was evaluated 01/27/21 with likely partial tear of L 2nd MCP. Patient was casted for 3 wks and had cast removed for re-examination today. Tolerated cast without difficulty. Following cast removal, patient reports symptoms of L 2nd MCP entirely resolved. Patient has no pain at rest or when resisting radial or ulnar stress of MCP. Does endorse some stiffness of middle PIP, likely secondary to immobilization in cast. MEDICATIONS: Current Outpatient Medications: ??? losartan (COZAAR) 100 mg Tablet, TAKE ONE TABLET BY MOUTH EVERY DAY, Disp: , Rfl: ??? pravastatin (PRAVACHOL) 40 mg Tablet, TAKE ONE TABLET BY MOUTH EVERY DAY, Disp: , Rfl: ??? sildenafiL (VIAGRA) 100 mg Tablet, Take by mouth., Disp: , Rfl: ??? atorvastatin (Lipitor) 40 mg Tablet, 1 tablet., Disp: , Rfl: ??? simvastatin (ZOCOR) 40 mg tablet, , Disp: , Rfl: ALLERGIES: Allergies Allergen Reactions ??? Amlodipine Other reaction(s): periphreal edema ??? Lisinopril Other reaction(s): cough ??? Rosuvastatin Calcium Other reaction(s): myalgias ??? Sulfa (Sulfonamide Antibiotics) Nausea And Vomiting ??? Hydrochlorothiazide Other reaction(s): Leg cramps PHYSICAL EXAM: Temp: -- Heart Rate: [68] BP: (144)/(96) Body mass index is 27.25 kg/m??. No acute distress Affect within normal limits for age Alert and oriented Speech clear and intact, appropriate for age Head atraumatic Respirations unlabored Brisk capillary refill peripheral bilateral upper extremities, warm and well perfused L index finger: Improved swelling of MCP No TTP MCP No extensor subluxation UCL, RCL stable and pain free Painless extension, flexion of digit No pain when resisting 1st dorsal interosseous muscle Painless radial and ulnar deviation against resistance through MCP IMAGING: None ASSESSMENT and PLAN: This is a 50 y.o. male seen in follow-up for likely L 2nd MCP partial tear. Patient experienced symptoms for ~6 months prior to casting, and was immobilized for 3 wks. Following cast removal, symptoms of L 2nd MCP fully resolved. Does endorse some discomfort and stiffness of middle digit PIP, likely secondary to immobilization. Recommended patient be activity as tolerated of the LUE with NSAIDs / ice over next 7-10 days to improve swelling, which will likely resolve with conservative measures. No f/u required at this time. Patient knows to call the clinic for f/u if symptoms return. PLAN: - F/u PRN All questions were answered, and the patient/family were satisfied with the discussion. They know to call sooner with any questions or concerns. Follow-up: PRN Noam Hutton MD Orthopedic Resident I have seen and examined the above named patient, reviewed and edited the contents of the note supplied by the resident or physician grinder set up operator jig with whom I saw the patient, and reviewed our findings and recommendations with the patient in person. Feliciano Hurley MD, MPH Department of Orthopaedic Surgery Pediatric Orthopaedic & Hand Surgeon documented in this encounter Plan of Treatment Not on file documented as of this encounter Visit Diagnoses Diagnosis Pain in finger of left hand Pain in limb documented in this encounter Care Teams Tool Grinding Machine Operator Relationship Specialty Start Date End Date Karlos Mariano DO [address] [place] [address] PCP - General Family Medicine 01/16/21 documented as of this encounter
--- OUTSIDE RECORDS SUMMARY | 2023-12-20 12:36 | XMS_ITS | Encounter Summary ---
Author Organization [facility] Address [address] [place] [address] Care Team Providers Care Water Ski Assembler Name Role Phone Karlos Mariano DO Primary Care Provider [phone] Encounter Details Date Type Department Care Team (Late st Contact Info) Description 12/20/2023 Lab Requisition [facility] Pathology & Laboratory Medicine - [facility] [address] [place] [address] Outr Resulting Lab, Provider Social History Tobacco Use Types Packs/Day Years Used Date Smoking Tobacco: Never Assessed Sex and Gender Information Value Date Recorded Sex Assigned at Not on file Gender Identity Not on file Sexual Orientation Not on file documented as of this encounter Plan of Treatment Scheduled Orders Name Type Priority Associated Diagnoses Orde r Schedule HEPATITIS C AB W REFLEX TO H CV RNA BY PCR Lab Routine Ordered: 024 documented as of this encounter Visit Diagnoses Not on filedocumented in this encounter Care Teams Water Ski Assembler Relationship Specialty Start Date End Date Karlos Mariano DO [address] [place] [id number] PCP - General 08/04/21 documented as of this encounter
--- OUTSIDE RECORDS SUMMARY | 2023-12-20 12:36 | XMS_ITS | Referral Summary ---
Author Organization [facility] Address [address] [place] [address] Care Team Providers Care Track Superintendent Name Role Phone Karlos Mariano DO Primary Care Provider [phone] Encounters Date Type Department Care Team Description 12/20/2023 Lab Requisition [facility] Pathology & Laboratory [address] [address] Outr Resulting Lab, Provider 12/20/2023 Lab Requisition [facility] Pathology & Laboratory [address] [address] Outr Resulting Lab, Provider from Last 3 Months Social History Tobacco Use Types Packs/Day Years Used Date Smoking Tobacco: Never Assessed Sex and Gender Information Value Date Recorded Sex Assigned at Not on file Gender Identity Not on file Sexual Orientation Not on file Plan of Treatment Not on file Care Teams Track Superintendent Relationship Specialty Start Date End Date Karlos Mariano DO [address] [place] [address] [place] [address] PCP - General 08/04/21
--- OUTSIDE RECORDS SUMMARY | 2023-12-20 12:36 | XMS_ITS | Encounter Summary ---
Author Organization [facility] Address [facility] [place] [address] Care Team Providers Care Application Internship Name Role Phone Candelario Avalos MD Primary Care Provider [phone] Encounter Details Date Type Department Care Team (Latest Contact Info) Description 10/05/2010 8:51 AM EDT - 10/05/2010 11:59 PM EDT Hospital Encounter XRay at [address] [place] [address] CLINIC, Sree Lyle MD [facility] [place] [address] Elbow pain Discharge Disposition: Home Social History Tobacco Use [...] Procedure Name Priority Date/Time Associated Diagnosis Comments XR ELBOWS 2 VIEWS BILAT Routine 10/05/2010 9:06 AM EDT Pain in joint, upper arm documented in this encounter Results * XR ELBOWS BILATERAL (10/05/2010 9:06 AM EDT) Anatomical Region Laterality Modality Elbow Bilateral Radiographic Mindy ging 10/05/2010 9:06 AM EDT Impressions 10/05/2010 3:21 PM EDT IMPRESSION: Unremarkable bilateral elbows. Narrative 10/05/2010 3:21 PM EDT FOUR VIEWS OF BILATERAL ELBOWS, 10/05/10: INDICATION: ??Left lateral epicondylitis, right elbow tendonitis. ?? COMPARISON: ??None available. ?? FINDINGS: ??Osseous structures are normal. ?? Joint spaces are intact. ??No significant enthesopathies noted. ??There is no joint effusion. ??Cubital tunnels are within normal limits without osseous impingement. ?? Procedure Note Brain Forde MD - 10/05/2010 FOUR VIEWS OF BILATERAL ELBOWS, 10/05/10: INDICATION: Left lateral epicondylitis, right elbow tendonitis. COMPARISON: None available. FINDINGS: Osseous structures are normal. Joint spaces are intact. No significant enthesopathies noted. There is no joint effusion. Cubitaltunnels are within normal limits without osseous impingement. IMPRESSION IMPRESSION: Unremarkable bilateral elbows. Sree Mitchell MD IMG DX ORDERABLES documented in this encounter Visit Diagnoses Diagnosis Elbow pain Pain in joint, upper arm documented in this encounter Care Teams Application Internship Relationship Specialty Start Date End Date Candelario Avalos MD [address] [place] [address] PCP - General 10/05/10 01/15/21 documented as of this encounter
--- OUTSIDE RECORDS SUMMARY | 2023-12-20 12:36 | XMS_ITS | Encounter Summary ---
[place] [address] Care Team Providers Care Citizen Participation Specialist Name Role Phone Karlos Mariano DO Primary Care Provider Reason for Visit * Reason Comments Follow-up Pain in finger of le ft hand Encounter Details Date Type Department Care Team (Late st Contact Info) Description 01/27/2021 9:15 AM EDT [place] [id number] Pain in finger of left hand Social History Tobacco Use Types Packs/Day Years Used Date Smoking Tobacco: Never Assessed Sex and Gender Information Value Date Recorded Sex Assigned at Not on file Gender Identity Not on file Sexual Orientation Not on file documented as of this encounter Progress Notes * Toyin Javier - 01/27/2021 9:15 AM EDT Arnaldo Meeks presents to the cast room for cast application per Dr. Hurley. The patient's skin is intact. The patient is placed in a well padded fiberglass short arm radial gutter cast on the leftside. The patient tolerated the procedure well. Details on icing, elevation and proper cast care was discussed with the patient. A cast bag was provided to the patient. The patient was given instruction to call the clinic with any questions or concerns. documented in this encounter Plan of Treatment Not on file documented as of this encounter Visit Diagnoses Diagnosis Pain in finger of left hand Pain in limb documented in this encounter Care Teams Citizen Participation Specialist Relationship Specialty Start Date End Date Karlos Mariano DO [address] [place] [address] PCP - General Family Medicine 01/16/21 documented as of this encounter
[2023-12-20 20:21] LABS: Hepatitis C Ab w Rflx HCV PCR Negative (Negative)
[2023-12-20 20:29] LABS: HIV-1/2 Ag & Ab Screen Negative (Negative)
== END 2023-12-20 12:20 | disposition home or self-care (01) ==
LOC: LBO 12:35
PROVIDERS: PCP Family Medicine; Visit Provider Family Medicine
DX: Z00.00 Encounter for general adult medical examination without abnormal findings (principal); I10 Essential (primary) hypertension; Z11.59 Encounter for screening for other viral diseases
CPT/HCPCS: 36415; 86803; 87389; 82565; 84132

== ENCOUNTER 2024-08-02 10:42 | Emergency (ER) | payer OTHER, SELFPAY ==
[2024-08-02 11:12] VITALS: BP 147/98; PULSE 75; RESP 18; TEMP 36.8; O2SAT 98
--- NOTE | 2024-08-02 13:11 | ED.GENADUL_ITS ---
Discharge Plan Disposition Patient Disposition: Home Discharge Details Clinical Impression: Head injury Primary Care Provider: Dawson Salgado ED Provider: Rena Rodríguez Home Meds and New Rx's Prescriptions: No Action felodipine 2.5 mg tablet extended release 24 hr 2.5 mg PO DAILY Qty: 90 3RF losartan 100 mg tablet 100 mg PO DAILY Qty: 90 3RF atorvastatin 40 mg tablet 40 mg PO DAILY Qty: 90 3RF Discharge Instructions Instructions: Minor Head Injury, Adult ED Additional Instructions: Please call your primary care provider's office tomorrow morning to schedule a follow-up appointment next week for reevaluation. You have a minor head injury, a minor concussion is also likely. Continue using Tylenol for headache as needed. Ice packs on your head may help with the discomfort from hitting it. I encourage you to wash the abrasion on your head with antibacterial soap and water daily, apply a thin layer of triple antibiotic ointment to prevent infection. Keep an eye out for signs of infection such as redness, swelling, pus drainage-if you notice any of these, please seek care. I recommend that you avoid any activities that may involve repeat head injury to avoid second impact syndrome. Also keep an eye on your headache symptoms, avoiding excessive screen time and vomiting activities that may cause your headache to increased such as reading, concentrating on a task, or other activities that may cause eyestrain. No vigorous prescribed until you are cleared by your PCP. Return to emergency care if you develop new severe headache, vision changes, balance problems, uncontrollable vomiting, behavior change, or if you are very worried and need to be rechecked again immediately Referrals: Dawson Salgado MD [Primary Care Provider] - [facility] General Date/Time Provider Initiated Documentation: 08/02/24 10:53 . [facility] Narrative: Arnaldo is a 54year old male who presents to the emergency department today for evaluation of head injury. He reports that this morning at 6 AM he slipped while walking, causing him to hit the top of his head on a concrete stair. No loss of consciousness. He has had a moderate right-sided headache with a feeling of tingling on his scalp since then. Denies dizziness, vision changes, bleeding from nose or ears, neck pain, back pain, extremity weakness, gait problems, balance problems. He is not on any anticoagulation. Reports he is up-to-date for vaccinations, including tetanus. Past medical history is significant for [] Physical exam reassuring. Superficial abrasion noted to crown of head, no active bleeding or drainage. PERRL, EOMs intact. Cranial nerves II through XII intact as tested. Normal finger to finger, finger-nose, rapid alternating movements. Normal gait and heel walk. History and presentation consistent with minor head injury, possible mild concussion. No head CT or C-spine imaging indicated based on Nexus criteria. Reviewed discharge instructions with patient, including symptomatic management, concussion precautions, and red flags indicating need for return to emergency care. He is agreeable with plan of care Related Data Home Medications ?Medication ?Instructions ?Recorded ?Confirmed atorvastatin 40 mg tablet 40 mg PO DAILY #90 tabs 12/15/23 01/05/24 felodipine 2.5 mg tablet,extended 2.5 mg PO DAILY #90 tabs 12/15/23 01/05/24 release 24 hr losartan 100 mg tablet 100 mg PO DAILY #90 tabs 12/15/23 01/05/24 Previous Rx's ?Medication ?Instructions ?Recorded atorvastatin 40 mg tablet 40 mg PO DAILY #90 tabs 12/15/23 felodipine 2.5 mg tablet,extended 2.5 mg PO DAILY #90 tabs 12/15/23 release 24 hr losartan 100 mg tablet 100 mg PO DAILY #90 tabs 12/15/23 Allergies Allergy/AdvReac Type Severity Reaction Status Date / Time amlodipine AdvReac Intermediate periphreal Verified 01/05/24 09:44 edema lisinopril AdvReac Intermediate cough Verified 01/05/24 09:44 rosuvastatin calcium (From AdvReac Intermediate myalgias Verified 01/05/24 09:44 Crestor) hydrochlorothiazide AdvReac Mild Leg cramps Verified 01/05/24 09:44 Sulfa (Sulfonamide AdvReac Unknown Nausea Verified 01/05/24 09:44 Antibiotics) General Stated Complaint: Fall/Non TraumaCriteria DAVE: 4 Review of Systems Narrative: see HPI Exam Const General: cooperative, healthy appearing, comfortable, no acute distress and well developed Nutritional Appearance: average body habitus and well nourished Orientation: alert and oriented x3 HENMT Head: normal to inspection, no palpable skull fracture, abrasion vertex, no Cho's sign, no hematomas, no lacerations, no raccoon eyes and No periorbital ecchymosis Ears: hearing grossly normal bilaterally General nose exam: external nose normal Face and sinus: normal facial exam Neck Neck: normal visual inspection and full ROM Resp Effort & Inspection: normal respiratory effort and able to speak in complete sentences Neuro General: patient alert, patient oriented x3, gait normal, moves all extremities and no focal motor deficits Cranial Nerves: CN's II-XI intact bilaterally, PERRL and EOM intact bilaterally Speech: speech normal Gait: normal gait Motor: muscle tone normal throughout and strength 5/5 throughout Sensory Exam: no sensory deficits noted Coordination: [id number] test normal and rapid alternating movement UE normal Course Vital Signs Vital signs: Vital Signs Temperature 36.8 C 08/02/24 11:12 Pulse 75 08/02/24 11:12 Respiratory Rate 18 08/02/24 11:12 Blood Pressure 147/98 H 08/02/24 11:12 Pulse Oximetry 98 08/02/24 11:12 Temperature 36.8 C 08/02/24 11:12 Temperature Source Temporal Artery Scan 08/02/24 11:12 Pulse 75 08/02/24 11:12 Respiratory Rate 18 08/02/24 11:12 Blood Pressure 147/98 H 08/02/24 11:12 Blood Pressure Position Sitting 08/02/24 11:12 Pulse Oximetry 98 08/02/24 11:12 Oxygen Delivery Method Room Air 08/02/24 11:12 Oxygen Flow Rate 0 08/02/24 11:12 Pain Level 5 08/02/24 11:12 Medical Decision Making Quality:SDOH Health Related Social Needs: No Data to Display PFSH All Active Problems (Updated 08/02/24 @ 13:10 by Rena Zafar) Head injury (Acute) Pain of left sacroiliac joint (Acute) Chronic left hip pain (Acute) Back pain due to injury (Acute) Left carpal tunnel syndrome (Acute) s/p left ECTR DOS: 09/07/22 Hyperlipidemia (Acute) Subcutaneous nodule of hand (Acute) Essential hypertension (Acute 08/16/17) Chest pain (Acute 05/27/17) Neg MPI 2016 Surgical History Repair of inguinal hernia Repair, Tendon or Muscle (~2012) ACHILLES TENDON Family History Mother No problems noted. Father Essential hypertension Hyperlipidemia Brother Diabetes Essential hypertension Hyperlipidemia Grandfather Heart disease Grandfather No problems noted. Grandmother Diabetes Essential hypertension Grandmother No problems noted. Son No problems noted. Daughter No problems noted. 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
== END 2024-08-02 13:15 | disposition home or self-care (01) ==
PROVIDERS: Emergency Provider Nurse Practitioner Family; PCP Family Medicine
DX: S09.8XXA Other specified injuries of head, initial encounter (principal); I10 Essential (primary) hypertension; W01.0XXA Fall on same level from slipping, tripping and stumbling without subsequent striking against object, initial encounter; Y93.01 Activity, walking, marching and hiking; Y92.89 Other specified places as the place of occurrence of the external cause
CPT/HCPCS: 99283

== ENCOUNTER 2024-09-06 00:55 | Outpatient (CLI) | payer BC, SELFPAY ==
--- NOTE | 2024-09-06 07:00 | DI.MRI_ITS ---
Exam(s) MR BRAIN WO EXAM: MR BRAIN WO CLINICAL HISTORY: evaluate frontal lobe hypodensity seen on CT,cva,i63.9 TECHNIQUE: Multiplanar multisequence MRI of the brain was performed. COMPARISON: CT CT HEAD WO from 08/16/2024 FINDINGS: VENTRICLES AND EXTRA AXIAL SPACES: Normal in size and morphology for the patient's age. MIDLINE SHIFT: None. CEREBRAL PARENCHYMA: No focus of restricted diffusion to suggest acute infarct. No space-occupying le joy identified. There is again seen a round 5 mm area in the white matter of the right frontal lobe. It follows fluid on all pulse sequences. No evidence of hemorrhage is seen on the gradient images. HEMORRHAGE: None. BRAINSTEM/CEREBELLUM: Normal. CALVARIUM: Normal. VISUALIZED PARANASAL SINUSES/MASTOIDS:Clear. [place]: Normal flow void. PITUITARY GLAND: Unremarkable. OTHER FINDINGS: None. IMPRESSION: 5 mm area in the right matter of the right frontal lobe which follows fluid on all pulse sequences. There is no evidence of hemorrhage. The finding likely reflects an incidental perivascular space or possible old lacunar infarct. No acute abnormality is identified. No follow-up is recommended. DATA REPOSITORY:
== END 2024-09-06 01:15 ==
LOC: DI 00:55
PROVIDERS: PCP Family Medicine; Visit Provider Family Medicine
DX: I63.9 Cerebral infarction, unspecified (principal)
CPT/HCPCS: 70551

== ENCOUNTER 2024-12-28 00:58 | Outpatient (CLI) | payer BC, SELFPAY ==
[2024-12-28 11:51] LABS: Calculated LDL 96 mg/dL (<100); Cholesterol 146 mg/dL (<200); Estimated GFR 90.56 (mL/min/1.73m2); Glucose 104 mg/dL (74-106); HDL Cholesterol 34 mg/dL (>or=40); Potassium 4.3 mmol/L (3.5-5.1); Triglyceride 82 mg/dL (<150)
== END 2024-12-28 00:59 | disposition home or self-care (01) ==
PROVIDERS: PCP Family Medicine; Visit Provider Family Medicine
DX: I10 Essential (primary) hypertension (principal); E78.5 Hyperlipidemia, unspecified; R73.9 Hyperglycemia, unspecified
CPT/HCPCS: 36415; 80061; 82947; 82565; 84132

== ENCOUNTER 2025-01-12 13:17 | Emergency (ER) | payer BC, SELFPAY ==
[2025-01-12 13:21] VITALS: BP 146/96; PULSE 76; RESP 16; TEMP 36.7; O2SAT 98
[2025-01-12] MEDS: Lidocaine/Prilocaine Cream 5 GM TUBE TP (13:40)
--- NOTE | 2025-01-12 13:44 | ED.GENADUL_ITS ---
Discharge Plan Disposition Patient Disposition: Home Condition: Stable Discharge Details Clinical Impression: External hemorrhoid, thrombosed Primary Care Provider: Dawson Salgado ED Provider: Arnaldo Meadows Home Meds and New Rx's Prescriptions: Continued losartan 100 mg tablet 100 mg PO DAILY Qty: 90 3RF atorvastatin 40 mg tablet 40 mg PO DAILY Qty: 90 3RF felodipine 2.5 mg tablet extended release 24 hr 2.5 mg PO DAILY Qty: 90 3RF Discharge Instructions Additional Instructions: You had a thrombosed hemorrhoid which is the cause of your bleeding. This was removed using a small incision. I recommend sitting in a warm bath a few times a day. Follow-up with your primary care provider or express care if not improving this week. You continue to use Preparation H. If you feel more ill or have new symptoms such as severe worsening pain return to emergency department for reevaluation. HPI General Mode of arrival: ambulatory . Date/Time Provider Initiated Documentation: 01/12/25 13:18 . Limitations to Documentation: no limitations . Information obtained by: patient . History of Present Illness 54 year old M presents to the emergency department with the chief complaint of retal bleeding, described as moderate, Patient started experiencing this hour(s) (1) and it has been constant. No relieving factors improve symptom(s), No exacerbating factors reported . Patient notes no other symptoms.. Patient did receive the following treatments prior to arrival, none Related Data Home Medications ?Medication ?Instructions ?Recorded ?Confirmed atorvastatin 40 mg tablet 40 mg PO DAILY #90 tabs 12/2801/12/25 felodipine 2.5 mg tablet,extended 2.5 mg PO DAILY #90 tabs 12/10/24 01/12/25 release 24 hr losartan 100 mg tablet 100 mg PO DAILY #90 tabs 12/2801/12/25 Previous Rx's ?Medication ?Instructions ?Recorded atorvastatin 40 mg tablet 40 mg PO DAILY #90 tabs 12/28 felodipine 2.5 mg tablet,extended 2.5 mg PO DAILY #90 tabs 12/10/24 release 24 hr losartan 100 mg tablet 100 mg PO DAILY #90 tabs 12/28 Allergies Allergy/AdvReac Type Severity Reaction Status Date / Time amlodipine AdvReac Intermediate periphreal Verified 01/12/25 13:26 edema lisinopril AdvReac Intermediate cough Verified 01/12/25 13:26 rosuvastatin calcium (From AdvReac Intermediate myalgias Verified 01/12/25 13:26 Crestor) hydrochlorothiazide AdvReac Mild Leg cramps Verified 01/12/25 13:26 Sulfa (Sulfonamide AdvReac Unknown Nausea Verified 01/12/25 13:26 Antibiotics) General Stated Complaint: GI Bleed DAVE: 3 Review of Systems All systems reviewed & are unremarkable except as noted in HPI and below Constitutional Constitutional: Denies chills, Denies fever(s) and Denies weakness Cardiovascular Cardiovascular: Denies chest pain and Denies dyspnea Respiratory Respiratory: Denies cough and Denies dyspnea Gastrointestinal Gastrointestinal: Denies abdominal pain, Denies nausea, Denies vomiting and Reports other (hemorrhoid) Musculoskeletal Musculoskeletal: Denies joint swelling Neurologic Neurologic: Denies weakness Psychiatric Psychiatric: Denies depression Exam Const General: no acute distress Orientation: alert HENMT Head: normal to inspection Ears: external ears normal General nose exam: external nose normal Mouth: moist mucous membranes Eyes General: appearance normal, both eyes and all related structures Neck Neck: normal visual inspection Resp Effort & Inspection: normal respiratory effort and able to speak in complete sentences Cardio Rate: regular rate GI Palpation: nontender Rectal Exam: hemorrhoids Skin General skin exam: no rashes or lesions noted Neuro General: patient alert and patient oriented x3 Extrem General: normal to inspection Psych Mental Status: mental status grossly normal Course Vital Signs Vital signs: Vital Signs Temperature 36.7 C 01/12/25 13:21 Pulse 76 01/12/25 13:21 Respiratory Rate 16 01/12/25 13:21 Blood Pressure 146/96 H 01/12/25 13:21 Pulse Oximetry 98 01/12/25 13:21 Temperature 36.7 C 01/12/25 13:21 Temperature Source Oral 01/12/25 13:21 Pulse 76 01/12/25 13:21 Respiratory Rate 16 01/12/25 13:21 Blood Pressure 146/96 H 01/12/25 13:21 Blood Pressure Position Sitting 01/12/25 13:21 Pulse Oximetry 98 01/12/25 13:21 Oxygen Delivery Method Room Air 01/12/25 13:21 Oxygen Flow Rate 0 01/12/25 13:21 Pain Level 4 01/12/25 13:21 Medical Decision Making 54-year-old male who denies being on any blood thinners comes in with 3 days of a painful hemorrhoid and today had blood in his pants after he sat in the car. He denies any other symptoms such as weakness, difficulty breathing, abdominal pain. He is hemodynamically stable on arrival. He has a large approximately 4 cm external hemorrhoid that is thrombosed and has evidence of recent bleeding. There is no active bleeding. Given he is within 3 days of symptom onset and how large the thrombosis is a feel excision would be beneficial to him. Will check a CBC and CMP and he gives verbal consent for evacuation of the thrombosis. Labs unremarkable, I injected 5 cc of 2% lidocaine with epinephrine into the hemorrhoid. This was done after cleaning with chlorhexidine. I then used an 11 blade and made a small elliptical incision and expressed a large blood clot from the hemorrhoid. Patient tolerated well and feels improved after the procedure. He is stable for discharge he will follow-up with either express care or PCP if not improving this week and return precautions given Differential Diagnosis Differential Diagnosis: Thrombosed hemorrhoid, bleeding hemorrhoid Quality:SDOH Health Related Social Needs: Health related social needs house/econ circumstance ed ucation [facility] All Active Problems (Updated 01/12/25 @ 14:19 by Arnaldo Meadows MD) External hemorrhoid, thrombosed (Acute) CVA (cerebral vascular accident) (Chronic) Pain of left sacroiliac joint (Acute) Chronic left hip pain (Acute) Back pain due to injury (Acute) Left carpal tunnel syndrome (Acute) s/p left ECTR DOS: 09/07/22 Hyperlipidemia (Acute) Subcutaneous nodule of hand (Acute) Essential hypertension (Acute 08/16/17) Chest pain (Acute 05/27/17) Neg MPI 2016 Surgical History Repair of inguinal hernia Repair, Tendon or Muscle (~2012) ACHILLES TENDON Family History Mother No problems noted. Father Essential hypertension Hyperlipidemia Brother Diabetes Essential hypertension Hyperlipidemia Grandfather Heart disease Grandfather No problems noted. Grandmother Diabetes Essential hypertension Grandmother No problems noted. Son No problems noted. Daughter No problems noted. 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
[2025-01-12 13:51] LABS: Abs Immature Grans 0.01 10^3/uL (0.0-0.06); HCT 41.8 % (40.0-50.0); HGB 14.2 g/dL (13.5-17.5); Immature Grans % 0.1 %; MCH 28.6 pg (27.0-33.0); MCHC 34.0 % (32.0-36.0); MCV 84 fL (80-95); MPV 10.4 fL (8.0-11.0); Platelet Count 338 10^3/uL (130-400); RBC 4.96 10^6/uL (4.36-5.78); RDW 12.6 % (11.8-14.1); RDW-SD 38.6 fL; WBC 9.54 10^3/uL (4.4-10.8)
[2025-01-12 14:01] LABS: ALT 46 U/L (16-63); AST 25 U/L (15-37); Albumin 4.1 g/dL (3.4-5.0); Alkaline Phosphatase 109 U/L (46-116); Anion Gap 7.7 mmol/L (3-11); BUN 14 mg/dL (7-18); Bilirubin, Total 0.6 mg/dL (0.2-1.0); CO2 31.3 mmol/L (21.0-32.0); Calcium 9.1 mg/dL (8.5-10.1); Chloride 102 mmol/L (98-107); Estimated GFR 90.56 (mL/min/1.73m2); Glucose 98 mg/dL (74-106); Potassium 3.7 mmol/L (3.5-5.1); Sodium 141 mmol/L (136-145); Total Protein 7.5 g/dL (6.4-8.2)
[2025-01-12] MEDS: Lidocaine 2% Pres-Free W/EPI 1/200,000 20 ML VIAL (14:28)
== END 2025-01-12 14:27 | disposition home or self-care (01) ==
PROVIDERS: Emergency Provider Emergency Medicine; PCP Family Medicine
DX: K64.5 Perianal venous thrombosis (principal); Z59.89 Other problems related to housing and economic circumstances
CPT/HCPCS: 99283 ×2; 46083; 80053; 86850; 86900; 86901; 85025; J2004